=== PATIENT | female | born 1935 | race Caucasian/White ===

== ENCOUNTER 2017-02-03 20:48 | Inpatient (IN) ==
--- NOTE | 2017-02-03 21:54 | Diag Imaging Result Doc PS360 ---
EXAM: HEAD/C-SPINE W/O CONTRAST HISTORY: fall with L hip pain TECHNIQUE: COMPARISON: 12/23/2014 FINDINGS: Head: No parenchymal hemorrhage. No epidural or subdural hematoma. No subarachnoid hemorrhage. No skull fracture. No mass identified on this noncontrasted exam. No hydrocephalus. No sinus opacification. Cervical spine: There is mild curvature to the spine. No precervical soft tissue swelling. No subluxation. There are degenerative changes in the lower cervical spine. No fracture. IMPRESSION: No injury to the head or cervical spine. A preliminary report was given at 9:42 PM Electronically signed by Trent Barrera 02/03/2017 9:52 PM
--- NOTE | 2017-02-03 22:02 | Diag Imaging Result Doc PS360 ---
EXAM: PELVIS W/O CONTRAST HISTORY: fall with head injury; on blood thinner TECHNIQUE: COMPARISON: None. FINDINGS: There is scoliosis and degenerative changes in the lower lumbar spine. Neither hip is dislocated. No fracture to either hip. No widening of the pubic symphysis. No fracture to the pelvis. There is a soft tissue hematoma lateral to the left. IMPRESSION: No acute bony injury A preliminary report was given at 9:50 PM Electronically signed by Trent Barrera 02/03/2017 10:00 PM
[2017-02-03 23:21] LABS: MANUAL DIFF NEEDED? NO
[2017-02-03 23:22] LABS: BASO% 0.1 % (0.0-0.8); EOS# 0.08 X1000 (0.0-0.7); HEMATOCRIT 31.1 % (37.0-47.0); HEMOGLOBIN 10.3 g/dL (12.0-16.0); LYMPH# 1.42 X1000 (1.2-3.4); LYMPH% 17.5 % (20.5-51.1); MCHC 33.1 g/dL (33-37); MCV 90.7 FL (81-99); MONO# 0.69 X1000 (0.11-0.59); MONO% 8.5 % (1.7-9.3); MPV 9.9 FL (7.4-10.4); NEUT% 72.9 % (42.2-75.2); PLT 205 X1000 (130-400); RBC 3.43 XMIL (4.2-5.4)
[2017-02-03 23:39] LABS: ALBUMIN 3.8 g/dL (3.5-5.0); CALCIUM 9.3 mg/dL (8.8-10.2); TOTAL BILIRUBIN 0.43 mg/dL (0.20-1.00)
--- NOTE | 2017-02-03 23:45 | PROVIDER DOCUMENTATION ---
This chart was entered by Wilfredo Hernadez Scribe, acting as scribe for Maikol Angelo MD. HPI-Musculoskeletal Pain/Inj - GENERAL Chief Complaint: Fall Stated Complaint: LEFT HIP PAIN Time Seen by Provider: 02/03/17 21:37 Source: patient, family - HX OF PRESENT ILLNESS-MUSKULOSKELTAL Nature of Presenting Problem: Pt is a 81 yowf who presents to ER with CC of left hip injury. 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 Pt reports that she has nerve damage to RLE from prior back surgery, and is currently taking xarelto. Pt 's only complaint is a severe left hip hematoma. Quality of Pain: reports: pressure Severity in ED: severe Onset/Duration: unsure, just prior to arrival Timing: still present Any recent injury?: Yes Locality of Occurance: Home Similar Symptoms Previously?: No Recently seen or treated by another doctor?: No - FALL INJURY Location of Pain/Injury: reports: lower extremity (L hip) Pain Radiation: reports: no radiation Reason for Fall: reports: other ("Right leg just gave out on me") Loss of Consciousness: no loss of consciousness Injury Associated Symptoms: reports: joint pain (left hip), muscle aches, unable to bear weight, trouble walking. denies: arm pain, back/neck pain, chest pain, dizziness, headaches, puncture wound, shortness of breath, snap/ crack/pop sensation, vomiting, weakness Review of Systems - Adult - REVIEW OF SYSTEMS - ADULT Constitutional: denies: chills, fever, fatique, night sweats, weight gain, weight loss Eyes: reports: no symptoms reported Ears, Nose, Mouth & Throat: reports: no symptoms reported Cardiovascular: reports: no symptoms reported Respiratory: reports: no symptoms reported Gastrointestinal: reports: no symptoms reported Genitourinary: reports: no symptoms reported Musculoskeletal: reports: joint pain, joint swelling (left hip), muscle aches. denies: bone pain, back pain, frequent leg cramps, muscle weakness, neck pain Integumentary: reports: no symptoms reported Neurological: denies: dizziness/vertigo, headache/migraines, loss of balance, paresthesia, seizure, slurred speech Psychiatric: reports: no symptoms reported Endocrine: reports: no symptoms reported Hematologic/Lymphatic: reports: no symptoms reported Allergic/Immunologic: reports: no symptoms reported All Other Systems: Reviewed and Negative Past History - Adult - PAST MEDICAL HISTORY-ADULT Review of Records: reports: Nursing Assessment Review, Medications Reviewed Cardiovascular: reports: CAD, HTN, heart valve problem - PRIOR SURGERIES/PROCEDURES Surgical/Procedure History: reports: other (heart valve replacement) - IMMUNIZATION STATUS Childhood Immunizations: See Nurse Assessment Flu Vaccine: See Nurse Assessment - FAMILY HISTORY Family History: reviewed, not pertinent Physical Exam-Injury Related - Physical Exam-Injury Related Initial Vital Signs Reviewed: Yes General Appearance: appears well, alert, no apparent distress, thin (appears emaciated) Neck: non-tender, full range of motion, supple, normal inspection, other ( nondistended neck veins). negative: decresed ROM, limited range of motion, pain on movement, swelling Respiratory: chest non-tender, lungs clear, normal breath sounds, no pleuratic chest pain, no respiratory distress, no accessory muscle use. negative: respiratory distress, decreased breath sounds, accessory muscle use, wheezing Cardiovascular: normal peripheral pulses, regular rate, rhythm (paced rhythm). negative: bradycardia, tachycardia, irregularly irregular Abdominal Exam: normal bowel sounds, non tender, soft, no organomegaly, no pulsatile mass. negative: guarding, rebound, tenderness Extremity: normal inspection, no calf tenderness, normal capillary refill, pelvis stable, inflammation, pedal edema (2+ peripheral), swelling (severe swelling (hematome) to left hip), tenderness (mild L hip). negative: normal range of motion, non-tender, normal gait, no pedal edema, erythema Integumentary: ecchymosis (L hip), swelling, tenderness. 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 negative: motor weakness, sensory deficit Psych/Mental Status: normal mood/affect, normal thought content, normal thought process, oriented x 3 Progress - PLAN OF CARE/RESULTS Progress/Plan/Lab Results: Vital Signs - 8 hr 02/03/17 20:55 Temperature 98.1 F Pulse Rate 75 Respiratory Rate 18 Blood Pressure 184/54 O2 Sat by Pulse Oximetry 100 Laboratory Results - last 24 hr 02/03/17 02/03/17 23:09 23:09 WBC 8.11 RBC 3.43 L Hgb 10.3 L Hct 31.1 L MCV 90.7 MCH 30.0 MCHC 33.1 RDW Std Deviation 12.1 Plt Count 205 MPV 9.9 Immature Gran % (Auto) 0.0 Neut % (Auto) 72.9 Lymph % (Auto) 17.5 L [place] % (Auto) 8.5 Eos % (Auto) 1.0 Baso % (Auto) 0.1 Immature Gran # (Auto) 0.00 Neut # (Auto) 5.91 Lymph # (Auto) 1.42 [place] # (Auto) 0.69 H Eos # (Auto) 0.08 Baso # (Auto) 0.01 Sodium 131 L Potassium 4.0 Chloride 92 L Carbon Dioxide 28 Anion Gap 11 BUN 16 Creatinine 1.0 H Estimated GFR/1.73 m2 53 BUN/Creatinine Ratio 16 Glucose 116 H Calculated Osmolality 265 Calcium 9.3 Total Bilirubin 0.43 AST 18 ALT 11 Alkaline Phosphatase 71 Total Protein 6.0 L Albumin 3.8 Globulin 2.2 Albumin/Globulin Ratio 1.7 Orders Category Date Time Status HEAD/C-SPINE W/O CONTRAST [CT] Stat Exams 02/03/17 21:07 Completed PELVIS W/O CONTRAST [CT] Stat Exams 02/03/17 21:07 Completed CBC WITH ELECTRONIC DIFF [HEME] Stat Lab 02/03/17 23:09 Completed COMPREHENSIVE METABOLIC PANEL [CHEM] Stat Lab 02/03/17 23:09 Completed TYPE & SCREEN [BBK] Stat Lab 02/03/17 23:09 Received Result Diagrams: 02/03/17 23:09 02/03/17 23:09 - CT/MRI 1 CT Study: Head Impression: See EMR Report (NAP intracranially. DJD but no fx or other definite acute cspine injury - Dr. Velázquez (Radiologist)) CT Results: See report 2 CT Study: Pelvis Impression: See EMR Report (No pelvic of hip fx. Soft tissue hematoma lateral to the left hip - Dr. Velázquez (Radiologist)) CT Results: See report - CONSULTS/PCP/HOSPITALIST Notification #1 *Consult/PCP/Hospitalist*: Dr. Medina (Hospitalist) Time Discussed: 23:43 Consult Disposition: Admit Departure - Departure Date of Disposition Decision: 02/03/17 Time of Disposition Decision: 23:45 DIAGNOSIS: Hematoma and contusion Disposition: ADMITTED INPATIENT 09 Certified Medical Emergency: Emergent Condition: Good Referrals and Follow-Ups: Kenrick Borden MD [Primary Care Provider] - - Critical Care Note This patient required my direct & personal management of CC.: No This chart was documented by the indicated scribe, (Wilfredo Hernadez, Heladio) and accurately reflects the services I performed and decisions made by me, Maikol Angelo MD, as attested by the provider's signature.
[2017-02-04 01:22] LABS: INR 1.42; PROTIME 15.2 Seconds (9.2-11.7); PTT 38.5 Seconds (22.0-36.0)
[2017-02-04] MEDS ORDERED: TYLENOL PO PRN (02:41)
[2017-02-04] MEDS ORDERED: NEURONTIN PO ONE (02:41)
[2017-02-04] MEDS ORDERED: ZOFRAN IV PRN (02:41)
[2017-02-04] MEDS ORDERED: ULTRAM PO PRN (03:33)
--- NOTE | 2017-02-04 05:31 | EKG Report ---
Test Performed on : 02/04/2017 03:04:27 AM Test Reason : hx of A-fib Blood Pressure : / mmHG Vent. Rate : 062 BPM Atrial Rate : 055 BPM P-R Int : 000 ms QRS Dur : 174 ms QT Int : 476 ms P-R-T Axes : 000 -80 100 degrees QTc Int : 483 ms Ventricular-paced rhythm Abnormal ECG When compared with ECG of 16-NOV-2013 14:51, Electronic ventricular pacemaker has replaced Atrial fibrillation. Confirmed by Toño MCGOWAN, Ángel Henriquez ([id number]) on 02/04/2017 7:57:49 AM
--- NOTE | 2017-02-04 06:05 | HISTORY AND PHYSICAL ---
PRIMARY CARE PROVIDER: Dr. Kenrick Borden. TIME: 0130. CHIEF COMPLAINT: Fall. HISTORY OF PRESENT ILLNESS: Ms. Aragon is an 81-year-old, female who presented to the ER at approximately 8:50 p.m. on 02/03/2017 after having a fall at home. The patient states that she had a low back surgery several years ago, back in the 70s, from which she now has permanent nerve damage from. The patient states that she has chronic decrease in sensation as well as muscle control and difficulty with ambulation in bilateral lower extremities. She was walking with her cane at home and stated that her right foot was dragging when she was walking. It got caught and caused her to trip and fall. The patient fell, landing on her left hip, and did fall back and hit her head as well. She denies any loss of consciousness. Upon examination in the ER, she is awake and alert, and oriented x4. She is responding and answering questions appropriately. CT of the head and C-spine noncontrast showed no injury to the head or cervical spine. A pelvic CT was also performed which showed no acute bony injury, though there was a soft tissue hematoma noted to the lateral left hip. The patient does have quite a large hematoma noted to her left lateral hip. At this time, the patient reports that she is sore but is not complaining of any overt pain in this area or to her head. She denies any other injuries or symptoms at this time. The patient does have some chronic decreased sensation, though pulse, motor, and sensory are intact in both extremities. Neurovascular status is intact in the left lower extremity distal to the hematoma on her left upper hip. The patient does have a history of atrial fibrillation, currently on anticoagulation therapy with Xarelto. She also has a history of bradycardia with subsequent pacemaker placement and a history of coronary artery disease, status post CABG. She is also status post mitral valve replacement with a Maximiliano-Dao valve in 2011 for a treatment of mitral stenosis. Given the patient's cardiac history and concurrent anticoagulation therapy, we will admit her for further evaluation and observation of her left hip hematoma. She denies any headache, dizziness, lightheadedness, chest pain, shortness of breath, abdominal pain, nausea, vomiting, or diarrhea. The patient denies any constipation, hematochezia, or melena, though does report that when she is admitted to the hospital, she does frequently have problems with constipation. She denies any dysuria or urinary frequency. Other than abnormalities previously mentioned above in extremities, no other complaints. The patient is able to move all extremities well. She denies any fever, body aches, or chills. REVIEW OF SYSTEMS: A 12 point review of systems was conducted with the patient. All were negative except for pertinent positives mentioned above in the HPI. PAST MEDICAL HISTORY: 1. Chronic atrial fibrillation, on anticoagulation therapy with Xarelto. 2. Coronary artery disease, status post CABG. 3. Mitral valve disease, status post mitral valve replacement with a Maximiliano- Dao valve in 2011. 4. Hypertension. 5. Hypothyroidism. 6. History of peptic ulcer disease. 7. Gastroesophageal reflux disease. 8. History of vertigo. 9. Osteoarthritis. 10. Pacemaker placement for bradycardia. PAST SURGICAL HISTORY: 1. Mitral valve replacement along with coronary artery bypass graft with a single-vessel bypass in 2011. 2. Cholecystectomy. 3. Low back surgery. 4. Bilateral knee replacement. 5. Right shoulder replacement. 6. Cholecystectomy. 7. Hysterectomy. 8. Appendectomy. SOCIAL HISTORY: Patient is . She lives at home and her daughter does live with her. She denies any alcohol, tobacco, or illicit drug use. FAMILY HISTORY: Positive for her mother having a history of atrial fibrillation , arthritis, and a stroke. Her father had a history of congestive heart failure. She had 1 brother who from a stroke and another brother who at the age 60 due to metastatic bladder cancer. ALLERGIES: 1. Aminoglycosides. 2. polymyxin B 3. Streptomycin. HOME MEDICATIONS: 1. Tramadol 50 mg 1 p.o. p.r.n. as needed. 2. Xarelto 15 mg p.o. at bedtime. 3. Lovaza 1 g p.o. 4 times a day. 4. Synthroid 100 mcg p.o. daily. 5. Nexium 40 mg p.o. daily. 6. Lanoxin 125 mcg p.o. daily. 7. Carvedilol 12.5 mg p.o. b.i.d. 8. Magnesium oxide 1 tablet p.o. daily. 9. Losartan/hydrochlorothiazide 100/25 mg tablet 1 p.o. daily. 10. Gabapentin 100 mg 1 capsule p.o. at bedtime. 11. Amlodipine 5 mg once p.o. daily. DIAGNOSTIC DATA/LABORATORY RESULTS: White blood cell count 8.11, hemoglobin 10.3, hematocrit 31.1, platelet count 205,000. PT 15.2, INR 1.42, PTT 38.5. Sodium 131, potassium 4, chloride 92, carbon dioxide 28, BUN 16, creatinine 1, with a GFR of 53, glucose 116, calcium 9.3. Liver function tests are within normal limits. TSH is 2.36. Digoxin level is 0.6. EKG shows ventricular paced rhythm at a rate of 62 with a QTc of 483. Pelvis CT without contrast showed scoliosis and degenerative changes in the lower lumbar spine. There is not any bony injury or dislocation, though there is a soft tissue hematoma noted to the left lateral hip. This is per radiology. CT of head and C-spine, noncontrast, showed no injury to the head or cervical spine. This is per radiology. PHYSICAL EXAMINATION: VITAL SIGNS: Temperature 97.9 degrees, heart rate 71, respirations 20, blood pressure 171/50, oxygen saturation is 99% on room air. GENERAL: In general, Ms. Aragon is a very pleasant, 81-year-old, female who is resting comfortably on the ER stretcher. She was awake, alert, and able to answer all questions appropriately. HEENT: Head is atraumatic, normocephalic. Pupils are equal, round, reactive to light, were 3 mm bilaterally and brisk. Subconjunctivae were pink. Oral mucosa is moist. Oropharynx is clear. NECK: Supple. Trachea midline. No carotid bruits noted upon auscultation bilaterally. No JVD noted. CARDIOVASCULAR: Patient has normal S1, S2. No murmurs, gallops, or rubs appreciated, with a regular rate and a slightly irregular rhythm. PULMONARY: Patient has symmetrical chest expansion bilaterally. Lung sounds are clear to auscultation in bilateral full rodriguez. ABDOMEN: Soft, nontender, nondistended. Bowel sounds are present in all 4 quadrants, normoactive. EXTREMITIES: No cyanosis or clubbing noted. The patient has no edema noted in the lower extremities. She does have a large left lateral hip hematoma. There is a discoloration noted to the area as well. The patient is able to move all extremities. She has good range of motion in hips and knee joints. Pulse, motor, and sensory are intact in all extremities as well. Pedal pulses are 3+ bilaterally. Capillary refill is less than 3. The patient also has a small, approximately half-dollar size bruise noted to the anterior portion of her left wrist. INTEGUMENTARY: The patient's skin is pink, warm, dry, and intact. No lesions or sores noted except for above discoloration and bruising mentioned in the extremity exam. NEUROLOGICAL: Patient is alert and oriented to person, place, time, and situation. Cranial nerves 2-12 are grossly intact. ASSESSMENT AND PLAN: 1. Left lateral hip soft tissue hematoma. For this, we will place the patient on every 4 hour neurovascular checks in her left lower extremity. We have also placed an order for every 4 hour circumference measurements of her left upper thigh where the hematoma is located. We will repeat a CBC in the morning. We have, at this time, given the patient' s large hematoma, held her Xarelto. We will continue to monitor this very closely. 2. Chronic atrial fibrillation. As previously mentioned, we have held the patient's Xarelto at this time given her hematoma. We will continue her medications of digoxin. We will continue to follow. Her EKG showed a ventricular paced rhythm at a rate of 62. She will be placed on telemetry upon admission. 3. Coronary artery disease, status post coronary artery bypass graft. 4. Mitral valve disease, status post mitral valve replacement. 5. Hypertension. We will continue her antihypertensive medications. 6. Hypothyroidism. We will continue her levothyroxine and have placed an order for a TSH. 7. Gastroesophageal reflux disease. We will continue her Nexium. The patient will be placed on the medical floor with telemetry. She will have vital signs every 4 hours. Deep venous thrombosis prophylaxis will be provided with VICKI busby at this time. We will place her on fall precautions as well as every 4 hour neurological checks and neurovascular checks of her left lower extremity. We will do strict intake and output. She will be on a heart healthy diet. We will repeat a CBC and BMP in the morning. The patient does take digoxin. We have placed orders for a digoxin level as well. We will await those results. Further orders and recommendations pending hospital course, diagnostic studies, and physician evaluation. Dictated by RUDOLPH Frazier for Davie Medina MD cc: Davie Medina MD [facility]
[2017-02-04 07:29] LABS: MANUAL DIFF NEEDED? NO
[2017-02-04] MEDS: PRILOSEC PO SCH (07:35)
[2017-02-04 07:50] LABS: BASO% 0.6 % (0.0-0.8); EOS# 0.09 X1000 (0.0-0.7); EOS% 1.7 % (0.0-10.0); HEMATOCRIT 28.7 % (37.0-47.0); HEMOGLOBIN 9.6 g/dL (12.0-16.0); LYMPH# 1.58 X1000 (1.2-3.4); MCH 30.3 PG (27-31); MCHC 33.4 g/dL (33-37); MCV 90.5 FL (81-99); MONO# 0.56 X1000 (0.11-0.59); MONO% 10.3 % (1.7-9.3); MPV 9.7 FL (7.4-10.4); NEUT% 58.4 % (42.2-75.2); PLT 179 X1000 (130-400); RBC 3.17 XMIL (4.2-5.4)
[2017-02-04 08:04] LABS: AGAP 9; BUN 13 mg/dL (8-22); CALCIUM 9.1 mg/dL (8.8-10.2); CHLORIDE 94 mmol/L (98-107); COSMO 264; POTASSIUM 3.9 mmol/L (3.5-5.1); SODIUM 132 mmol/L (136-145); TCO2 29 mmol/L (25-35)
[2017-02-04] MEDS: SYNTHROID PO SCH (09:14)
[2017-02-04] MEDS: COREG PO SCH ×2 (09:15→22:44)
[2017-02-04] MEDS: MAG-OX PO SCH (09:15)
[2017-02-04] MEDS: HYZAAR 50/12.5 MG PO SCH (09:15)
[2017-02-04] MEDS: LOVAZA PO SCH ×4 (09:15→22:44)
[2017-02-04] MEDS: LANOXIN PO SCH (09:16)
[2017-02-04] MEDS: NORVASC PO SCH (09:16)
[2017-02-04] MEDS: NEURONTIN PO SCH (22:44)
[2017-02-05] MEDS: SYNTHROID PO SCH (06:10)
[2017-02-05] MEDS: PRILOSEC PO SCH (06:10)
--- NOTE | 2017-02-05 08:55 | PROGRESS NOTE ---
DATE: 02/05/2017 PRIMARY CARE PHYSICIAN: Dr. Kenrick Borden. SUBJECTIVE: Overnight the patient was moved to floor. Ice was used with good effect on the left hip hematoma. No other issues or concerns noted. The patient was able to move all extremities well per nursing. It was a great sign concerning this case. OBJECTIVE: Vital signs: Temperature 97.6 degrees, pulse 80, respirations unmeasured. Blood pressure 123/44, O2 saturation 94% on 2 L nasal cannula. I's and O's show an output fluid balance of approximately 1 L. General: Physical exam shows a female, no acute distress. Awake and alert. HEENT: Normocephalic, atraumatic. Pupils equal, round, reactive to light. neck: Trachea is midline. No bruits noted. Heart: Normal S1, S2. Lung: Lung sounds are clear to auscultation anteriorly. Abdomen: Soft, nontender, nondistended. Extremities: Show a large lateral hip hematoma. Erythema and ecchymosis noted, but no overt tenderness to palpation. Above expectation. Good range of motion. Pulses are 3+. The cap refill is less than 3 seconds. Neurologic: The patient is alert and oriented to person, place, time and situation. LABS: Labs show hemoglobin and hematocrit of 9.6 and 28.7, neutrophils within normal limits. Sodium is still low at 132. Anion gap of 9, creatinine 0.8, glucose of 82, digoxin level at 0.6. X-RAYS: Patient had a pelvis CT performed that shows no acute bony injury, and a head CT cervical spine performed that is well within normal limits. ASSESSMENT AND PLAN: We have a 81-year-old, female with: 1. Chronic atrial fibrillation. Coumadin being held. The patient will be on telemetry. 2. Left lateral hip hematoma. We will continue the circumference measurements. Complete blood count is within normal limits. Continue to monitor. I will hold the Xarelto. 3. Coronary artery disease status post coronary artery bypass graft. 4. Hypertension within normal limits. 5. Hypothyroidism. 6. Gastroesophageal reflux disease. The patient is doing well today. VICKI hoses will be provided. We will re-evaluate patient's medication list regarding what looks like chronic hyponatremia and follow in a.m. The patient is discharged likely in 1-2 days with good home care to be provided. We will discuss with family any of the outpatient needs as necessary. cc: Kenrick Borden MD
[2017-02-05] MEDS: LANOXIN PO SCH (10:02)
[2017-02-05] MEDS: NORVASC PO SCH (10:03)
[2017-02-05] MEDS: COREG PO SCH ×2 (10:03→20:08)
[2017-02-05] MEDS: MAG-OX PO SCH (10:04)
[2017-02-05] MEDS: LOVAZA PO SCH ×4 (10:04→20:08)
[2017-02-05] MEDS: HYZAAR 50/12.5 MG PO SCH (10:04)
--- NOTE | 2017-02-05 18:42 | CONSULTATION ---
DATE OF CONSULTATION: 02/05/2017 CHIEF COMPLAINT: Left hip hematoma. HISTORY: This is an 81-year-old lady who was on Xarelto for chronic atrial fibrillation. On Saturday 2 days ago she fell striking her left hip. She then developed this hematoma. The pain has lessened today. There does not seen to be any progression per her evaluation. PAST MEDICAL HISTORY: Pertinent for the chronic atrial fibrillation, coronary artery disease having had coronary bypass, history of mitral valve replacement, hypertension, hypothyroidism, gastroesophageal reflux, history of peptic ulcer disease, history of vertigo, osteoarthritis, history of a pacemaker placement. OPERATIONS: Mentioned above. In addition to what is mentioned above. She has had bilateral knee replacement and shoulder replacement, cholecystectomy, low-back surgery, hysterectomy and appendectomy. MEDICATIONS: Listed and include the Xarelto. ALLERGIES: She has an allergy to that is polymyxin B and streptomycin. SOCIAL HISTORY: She is . Denies alcohol or tobacco use. FAMILY HISTORY: Pertinent for atrial fibrillation. REVIEW OF SYSTEMS: As noted above. PHYSICAL EXAMINATION: Vital Signs: She is afebrile. Heart rate 67, irregular, respiratory 19, blood pressure 128/44. General: She is awake, alert and oriented. No cervical adenopathy. Lungs: Bilateral breath sounds. Heart: Irregular rate and rhythm. Abdomen: Soft. She has a large hematoma in the left hip laterally. There is no active evidence of bleeding. Extremities: Otherwise no peripheral edema. Neurologic: She is awake and alert. LABORATORY: Hemoglobin 9.6, hematocrit 28.7 yesterday. ASSESSMENT: Left hip hematoma. I would simply hold her Xarelto for now. I do not recommend any intervention regarding her hematomas. It should resolve with time. Any incision into the hematoma would increase her risk for infection and set her up for potential wound infection. Thanks for the opportunity to see her. cc: MD Kenrick Rousseau MD
[2017-02-05] MEDS: NEURONTIN PO SCH (20:08)
[2017-02-06 06:39] LABS: MANUAL DIFF NEEDED? NO
[2017-02-06] MEDS: SYNTHROID PO SCH (06:39)
[2017-02-06] MEDS: PRILOSEC PO SCH (06:39)
[2017-02-06 06:51] LABS: BASO% 0.4 % (0.0-0.8); EOS# 0.13 X1000 (0.0-0.7); EOS% 2.5 % (0.0-10.0); HEMATOCRIT 25.8 % (37.0-47.0); HEMOGLOBIN 8.5 g/dL (12.0-16.0); LYMPH# 1.49 X1000 (1.2-3.4); LYMPH% 28.2 % (20.5-51.1); MCH 29.9 PG (27-31); MCHC 32.9 g/dL (33-37); MCV 90.8 FL (81-99); MONO# 0.57 X1000 (0.11-0.59); MONO% 10.8 % (1.7-9.3); MPV 10.2 FL (7.4-10.4); NEUT% 58.1 % (42.2-75.2); PLT 178 X1000 (130-400); RBC 2.84 XMIL (4.2-5.4)
[2017-02-06 07:01] LABS: ALBUMIN 3.4 g/dL (3.5-5.0); CALCIUM 9.3 mg/dL (8.8-10.2); POTASSIUM 4.3 mmol/L (3.5-5.1); TOTAL BILIRUBIN 0.46 mg/dL (0.20-1.00); TOTAL PROTEIN 5.5 g/dL (6.3-8.3)
[2017-02-06] MEDS ORDERED: BENADRYL PO ONE (07:43)
[2017-02-06] MEDS ORDERED: TYLENOL PO ONE (07:43)
--- NOTE | 2017-02-06 08:02 | PROGRESS NOTE ---
DATE: 02/06/2017 PRIMARY CARE PHYSICIAN: Dr. Kenrick Borden. SUBJECTIVE: Overnight, the patient responded well to current treatment. Assisted to chair. Incentive spirometer being used with excellent effect. Notes decreased pain associated with hematoma. No chest pain. No nausea. No vomiting. OBJECTIVE: Vital Signs: Temperature 97.5 degrees, pulse 63, respirations 21, blood pressure 146/48, O2 saturation 99% on room air. Is and Os: Practically matched. Patient is in-taking appropriately the amount of food provided. Physical Examination: General: Shows an elderly female, in no acute distress. Lying supine in bed. Extremities: Left hip noted to be warm to the touch. Ecchymosis approximately 6 cm in diameter over the left greater trochanter. Decrease in swelling. No issues associated with range of motion. CV: Irregularly irregular but rate controlled. Lungs: Clear to auscultation anteriorly. Vascular: Pulses in the lower extremities are 2+ and within normal limits. CONSULTATION: Per Dr. Gan, was evaluated for the left hematoma. No intervention was recommended. Incision is likely to increase the risk of infection. ASSESSMENT AND PLAN: An 81-year-old, white female with: 1. Chronic atrial fibrillation. Xarelto being held. Currently on telemetry. 2. Left lateral hip hematoma. Continue the circumference measurements. A CBC is noting anemia. Xarelto held. We will replete with 2 units of packed red blood cells today. 3. Hypertension. 4. Anemia of blood loss. 5. Hypothyroidism. 6. Gastroesophageal reflux disease. The patient will be provided 2 units of packed red blood cells with CBC checked in the morning to correct the chronic hyponatremia and to avoid any worsening upon discharge. Patient is planned to be discharged in the morning to home with minimal need for home health. cc: Kenrick Borden MD
[2017-02-06] MEDS: COREG PO SCH (09:19)
[2017-02-06] MEDS: HYZAAR 50/12.5 MG PO SCH (09:19)
[2017-02-06] MEDS: MAG-OX PO SCH (09:21)
[2017-02-06] MEDS: NORVASC PO SCH (09:21)
[2017-02-06] MEDS: LANOXIN PO SCH (09:21)
[2017-02-06] MEDS: LOVAZA PO SCH ×3 (09:22→16:34)
[2017-02-06] MEDS ORDERED: NS 250 ML ONE (10:07)
[2017-02-06] MEDS: LASIX IV SCH (15:39)
[2017-02-06] MEDS ORDERED: LASIX ONE (23:57)
[2017-02-07] MEDS: NEURONTIN PO SCH (00:01)
[2017-02-07] MEDS: COREG PO SCH ×2 (00:01→08:14)
[2017-02-07] MEDS: LOVAZA PO SCH ×2 (00:01→08:15)
[2017-02-07] MEDS: LASIX IV SCH (00:02)
[2017-02-07 06:36] LABS: MANUAL DIFF NEEDED? NO
[2017-02-07] MEDS: PRILOSEC PO SCH (06:40)
[2017-02-07] MEDS: SYNTHROID PO SCH (06:40)
[2017-02-07 06:59] LABS: BASO% 0.4 % (0.0-0.8); EOS% 1.9 % (0.0-10.0); HEMATOCRIT 31.1 % (37.0-47.0); HEMOGLOBIN 10.6 g/dL (12.0-16.0); LYMPH# 1.29 X1000 (1.2-3.4); MCH 29.8 PG (27-31); MCHC 34.1 g/dL (33-37); MCV 87.4 FL (81-99); MONO# 0.51 X1000 (0.11-0.59); MONO% 9.5 % (1.7-9.3); NEUT% 64.2 % (42.2-75.2); PLT 175 X1000 (130-400); RBC 3.56 XMIL (4.2-5.4)
[2017-02-07 07:13] LABS: ALBUMIN 3.4 g/dL (3.5-5.0); CALCIUM 9.2 mg/dL (8.8-10.2); MAGNESIUM 1.8 mg/dL (1.5-2.7); POTASSIUM 3.7 mmol/L (3.5-5.1); TOTAL BILIRUBIN 1.28 mg/dL (0.20-1.00); TOTAL PROTEIN 5.7 g/dL (6.3-8.3)
[2017-02-07 07:21] VITALS: BP 124/82
[2017-02-07] MEDS: HYZAAR 50/12.5 MG PO SCH (08:13)
[2017-02-07] MEDS: LANOXIN PO SCH (08:14)
[2017-02-07] MEDS: NORVASC PO SCH (08:14)
[2017-02-07] MEDS: MAG-OX PO SCH (08:14)
--- NOTE | 2017-02-07 12:58 | DISCHARGE SUMMARY ---
ADMISSION DATE: 02/05/2017 DISCHARGE DATE: 02/07/2017 PRIMARY CARE PHYSICIAN: Dr. Kenrick Borden CONSULTS: Dr. Maikol Gan CHIEF COMPLAINT: Status post fall. HISTORY OF PRESENT ILLNESS: In brief, an 81-year-old, female, with atrial fibrillation on Xarelto states having a fall at home secondary to permanent nerve damage. Denies any loss of consciousness. Noted left hip swelling, soft tissue hematoma. CT performed showing that there was no acute bony injury. CT of the head and C-spine showed no injury at that time. HOSPITAL COURSE: Patient was admitted to the general medical floor treated with IV fluid resuscitation. The Xarelto was held. The patient had ice to the hematoma site. Surgery evaluated and said no need for any surgical drainage or manipulation. Also discuss that the condition will likely last approximately 6 months. Recommendations were made. The patient was also anemic and received 2 units of packed red blood cells. PROBLEM LIST ON DISCHARGE: 1. Chronic atrial fibrillation. Xarelto held. 2. History of CAD, status post CABG. 3. History of mitral valve disease status post mitral valve replacement with Maximiliano-Dao valve 2011. 4. History of peptic ulceration. 5. 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 6. Left hip hematoma resolving. LABORATORY DATA: Labs show WBC within normal limits. Hemoglobin and hematocrit dropped to 8.5 and 25.8, improved to 10.6 and 31.1, status post 2 units of packed red blood cells. INR on admission 1.42. Sodium shows chronic hyponatremia with sodium ranging from approximately 128-132. BUN of 28 with creatinine of 0.9, total bilirubin 1.28 with a total protein 5.7, microbiology not performed. Reports as notated in the brief HPI. MEDICATIONS: Please refer to medication reconciliation order form for most up-to-date list of medications. DISCHARGE INSTRUCTIONS: The patient has been advised to continue the current medications along with the use of topical [place] cream and arnica gel for the swelling with off and in ice packs. Xarelto will be held until further evaluation of the hematoma and the blood count. Patient can continue the Ultram for pain as necessary. FOLLOWUP: Patient will follow up in my office in approximately 1 week. DISPOSITION: Discharged home in stable condition. cc: Kenrick Borden MD
== END 2017-02-07 09:49 | disposition home or self-care (01) ==
LOC: EDIPHOLD 20:48 → ED 20:48 → SUATTDRO 02-04 02:36 → 3N 02-04 12:13
PROVIDERS: ADMIT Family Medicine; ATTEND Family Medicine

== ENCOUNTER 2018-08-27 16:38 | Inpatient (IN) ==
--- NOTE | 2018-08-27 17:34 | Diag Imaging Result Doc PS360 ---
EXAM: CHEST-PORTABLE 08/27/2018 HISTORY: edema TECHNIQUE: AP portable upright at 1726 COMMENT: There is increasing right pleural effusion compared to 06/13/2015. There is cardiomediastinal silhouette enlargement with apparent mitral valve prosthesis and sternotomy wires. There is a right total shoulder arthroplasty. The left lung appears clear and unchanged. There are calcified nodes in the left hilum. IMPRESSION: Right pleural effusion. Electronically signed by Jeffy Warren 08/27/2018 5:31 PM
--- NOTE | 2018-08-27 17:39 | PROVIDER DOCUMENTATION ---
HPI-General Adult - General Chief Complaint: Edema Stated Complaint: FLUID BUILD UP Time Seen by Provider: 08/27/18 17:14 Source: patient, family, old records Allergies/Adverse Reactions: Patient Allergies Allergy/AdvReac Type Severity Reaction Status Date / Time Aminoglycosides Allergy Severe Unknown Verified 02/03/17 21:16 polymyxin B Allergy Severe RASH Verified 02/03/17 21:16 streptomycin [Streptomycin] Allergy Severe Unknown Verified 02/03/17 21:16 Home Medications: Home Medication List Medication Instructions Recorded Confirmed Last Taken Type Carvedilol 12.5 mg PO BID 11/16/13 08/27/18 06/13/15 08:00 History Digoxin [Lanoxin] 125 microgm PO DAILY 11/16/13 08/27/18 06/13/15 08:00 History Levothyroxine [Synthroid] 100 microgm PO DAILY 11/16/13 08/27/18 06/13/15 08:00 History Acetaminophen [Tylenol] 650 mg PO Q6H PRN PRN #0 tablet 02/07/17 08/27/18 Unknown Rx Magnesium Oxide [Mag-Ox] 400 mg PO DAILY tablet 02/07/17 08/27/18 Unknown Rx Tramadol [Ultram] 50 mg PO Q8H PRN #60 tablet 02/07/17 08/27/18 Unknown Rx Clopidogrel [Plavix] 75 mg PO DAILY 08/27/18 08/27/18 Unknown History Furosemide [Lasix] 40 mg PO DAILY 08/27/18 08/27/18 Unknown History Hydroxyzine [Atarax] 25 mg PO TID 08/27/18 08/27/18 Unknown History Rivaroxaban [Xarelto] 15 mg PO DAILY 08/27/18 08/27/18 Unknown History Spironolactone 25 mg PO DAILY PRN 08/27/18 08/27/18 Unknown History - History of Present Illness -Gen Adult Nature of Presenting Problems: Sent here from Dr. Richards office for worsening LE edema, dyspnea. Also complains of right arm swelling. Location of Pain/Injury: reports: none Pain Radiation: reports: no radiation Quality of Pain: reports: none Onset/Duration: reports: other (1 month) Timing: reports: getting worse Context/Activities at Onset: reports: none Modifying Factors: worse with: nothing Associated Symptoms: reports: fatigue, shortness of breath. denies: anxiety, chest pain, cough, diarrhea, dizziness, fever/chills, joint pain, sinus congestion/drainage, syncope, vomiting, trouble walking Similar Symptoms Previously?: Yes Recently seen or treated by another doctor?: Yes Review of Systems - Adult - REVIEW OF SYSTEMS - ADULT Constitutional: reports: fatique Eyes: reports: no symptoms reported Ears, Nose, Mouth & Throat: reports: no symptoms reported Cardiovascular: reports: see HPI, edema, orthopnea. denies: chest pain, syncope Respiratory: reports: see HPI, shortness of breath. denies: wheezing Gastrointestinal: reports: no symptoms reported Genitourinary: reports: no symptoms reported Musculoskeletal: reports: joint pain, joint swelling Integumentary: reports: no symptoms reported Neurological: reports: no symptoms reported. denies: numbness, paresthesia Psychiatric: reports: no symptoms reported Endocrine: reports: no symptoms reported Hematologic/Lymphatic: reports: no symptoms reported Allergic/Immunologic: reports: no symptoms reported All Other Systems: Reviewed and Negative Past History - Adult - PAST MEDICAL HISTORY-ADULT Review of Records: reports: Old Records Reviewed, Nursing Assessment Review, Medications Reviewed, Social history reviewed & non-contributory. Major Childhood Illnesses: reports: denies history Cardiovascular: reports: CAD, HTN, heart valve problem Respiratory: reports: denies history Gastrointestinal: reports: denies history Obstetrical/Gynecological: reports: denies history Genitourinary: reports: denies history Musculoskeletal: reports: denies history Neurological: reports: denies history Endocrine/Immune: reports: denies history Other Conditions: reports: denies history - PRIOR SURGERIES/PROCEDURES Surgical/Procedure History: reports: other (heart valve replacement) - IMMUNIZATION STATUS Childhood Immunizations: See Nurse Assessment Flu Vaccine: See Nurse Assessment - FAMILY HISTORY Family History: reviewed, not pertinent - SOCIAL HISTORY Smoking: denies Substance Use: none/never Alcohol Use Frequency: never Living Situation: family Physical Exam-General - PHYSICAL EXAM-ADULT Initial Vital Signs Reviewed: Yes - CONSTITUTIONAL General Appearance: appears well, alert, no apparent distress - EYES Eyes: pink conjunctivae - HEAD, EARS, NOSE, MOUTH & THROAT HENMT: moist mucous membranes - NECK Neck: supple - RESPIRATORY Respiratory: no respiratory distress, no accessory muscle use, crackles - CARDIOVASCULAR Cardiovascular: normal peripheral pulses, regular rate, rhythm - GASTROINTESTINAL (ABDOMEN) Abdominal Exam: non tender, soft - LYMPHATIC Lymphatic: no adenopathy - MUSCULOSKELETAL Back Exam: normal inspection Extremity: swelling (BLE; right elbow to proximal are there is severe edema, ecchymosis. Good radial pulses.) - SKIN Integumentary: normal color, normal turgor, warm/dry - NEUROLOGIC Neurologic: grossly normal, no motor/sensory deficits - PSYCHIATRIC Psych/Mental Status: normal thought content Progress - PLAN OF CARE/RESULTS Progress/Plan/Lab Results: Vital Signs - 8 hr 08/27/18 16:58 Temperature 98.2 F Pulse Rate 72 Respiratory Rate 19 Blood Pressure 153/74 O2 Sat by Pulse Oximetry 99 Orders Category Date Time Status Saline Loc NOW Care 08/27/18 17:16 Active cxr [CHEST-PORTABLE] [RAD] Stat Exams 08/27/18 17:17 Completed CBC WITH ELECTRONIC DIFF [HEME] Stat Lab 08/27/18 17:16 Uncollected CK PROFILE [SP CHEM] Stat Lab 08/27/18 17:16 Uncollected COMPREHENSIVE METABOLIC PANEL [CHEM] Stat Lab 08/27/18 17:16 Uncollected PRO B-NATRIURETIC PEPTIDE Stat Lab 08/27/18 17:16 Uncollected PROTIME WITH INR [COAG] Stat Lab 08/27/18 17:16 Uncollected PTT [COAG] Stat Lab 08/27/18 17:16 Uncollected TROPONIN T Stat Lab 08/27/18 17:16 Uncollected UA NIMS W/REFLEX CULT [URINALYSIS] Stat Lab 08/27/18 17:16 Uncollected CP/SOB/Palp >45 yrs of Age Stat Oth 08/27/18 17:16 Ordered EKG [EKG] Stat Ther 08/27/18 17:04 Ordered Venous U/S Right Arm Stat Ther 08/27/18 17:[address] Chatterjee. Result Diagrams: 08/27/18 18:00 08/27/18 18:00 - XRAY 1 Impression: See EMR Report (EXAM: CHEST-PORTABLE 08/27/2018 HISTORY: edema TECHNIQUE: AP portable upright at 1726 COMMENT: There is increasing right pleural effusion compared to 06/13/2015. There is cardiomediastinal silhouette enlargement with apparent mitral valve prosthesis and sternotomy wires. There is a right total shoulder arthroplasty. The left lung appears clear and unchanged. There are calcified nodes in the left hilum. IMPRESSION: Right pleural effusion.) 2 Impression: See EMR Report ( EXAM: ELBOW COMPLETE RIGHT 08/27/2018 HISTORY: ? injury TECHNIQUE: Right elbow three views COMMENT: There is severe erosion of the radial head, olecranon fossa and distal humerus. There are numerous bony fragments around the joint particularly posteriorly and there is soft tissue swelling, effusion, and probable olecranon bursal effusion. The radial head is dislocated with respect to the capitellum. 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 There appears to be arterial extravasation) - CONSULTS/PCP/HOSPITALIST Notification #1 *Consult/PCP/Hospitalist*: Dr. Lunsford Time Discussed: 19:17 Consult Disposition: Admit Procedures - SPLINTING Right Upper Extremity Other Location: right elbow Pre-Procedure Neurovascular Exam: Intact Pre-Fabricated Splint: Other (akil wrap) Applied By: Mid-level Post Procedure Neurovascular Exam: Intact Departure - Departure Date of Disposition Decision: 08/27/18 Time of Disposition Decision: 19:17 DIAGNOSIS: Extravasation injury CHF exacerbation Qualifiers: Heart failure type: unspecified Qualified Code(s): I50.9 - Heart failure, unspecified Dislocation of elbow Qualifiers: Encounter type: initial encounter Laterality: right Qualified Code(s): S53.104A - Unspecified dislocation of right ulnohumeral joint, initial encounter Anemia Qualifiers: Anemia type: unspecified type Qualified Code(s): D64.9 - Anemia, unspecified Disposition: ADMITTED INPATIENT 09 Certified Medical Emergency: Emergent Condition: Stable - Critical Care Note This patient required my direct & personal management of CC.: No Attestation - Physician/ JYOTSNA Attestation Patient care was provided by Advanced Practice Provider:: Yes Advanced Practice Provider:: Torin Jason Advanced Practice Provider documentation review:: The Mid-level provider documentation, treatment plan and medical decision making was reviewed by the physician who agrees with all treatment and medical decision making by the MLP. The physician spent face to face time with patient:: No Advanced Practice Provider documentation review:: Supervising physician onsite and consulted in the evaluation and care of this patient. The physician did not have a face to face encounter with the patient.
[2018-08-27 18:11] LABS: BASO# 0.05 X1000 (0.0-0.2); BASO% 0.8 % (0.0-0.8); EOS# 0.19 X1000 (0.0-0.7); EOS% 3.1 % (0.0-10.0); HEMATOCRIT 32.5 % (37.0-47.0); HEMOGLOBIN 9.9 g/dL (12.0-16.0); LYMPH# 1.07 X1000 (1.2-3.4); LYMPH% 17.6 % (20.5-51.1); MCHC 30.5 g/dL (33-37); MCV 95.3 FL (81-99); MONO# 0.58 X1000 (0.11-0.59); MONO% 9.5 % (1.7-9.3); MPV 9.8 FL (7.4-10.4); PLT 238 X1000 (130-400); RBC 3.41 XMIL (4.2-5.4); RDW 13.7 % (11.5-14.5); WBC 6.09 X1000 (4.8-10.8)
[2018-08-27 18:18] LABS: INR 1.45; PROTIME 18.8 Seconds (11.0-16.0)
[2018-08-27 18:19] LABS: PTT 37.7 Seconds (22.3-41.8)
--- NOTE | 2018-08-27 18:21 | Diag Imaging Result Doc PS360 ---
EXAM: ELBOW COMPLETE RIGHT 08/27/2018 HISTORY: ?injury TECHNIQUE: Right elbow three views COMMENT: There is severe erosion of the radial head, olecranon fossa and distal humerus. There are numerous bony fragments around the joint particularly posteriorly and there is soft tissue swelling, effusion, and probable olecranon bursal effusion. The radial head is dislocated with respect to the capitellum. 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 Electronically signed by Jeffy Warren 08/27/2018 6:18 PM
[2018-08-27 18:31] LABS: ALB/GLOB RATIO 1.3; ALBUMIN 3.7 g/dL (3.5-5.0); CALCIUM 9.2 mg/dL (8.8-10.2); CREATININE 1.2 mg/dL (0.5-0.9); POTASSIUM 4.7 mmol/L (3.5-5.1); TOTAL BILIRUBIN 0.76 mg/dL (0.20-1.00); TOTAL PROTEIN 6.6 g/dL (6.3-8.3)
[2018-08-27] MEDS ORDERED: LASIX IV ONE (18:50)
[2018-08-27 18:57] LABS: URINE SOURCE CLEAN CATCH
[2018-08-27 19:04] LABS: BILIRUBIN URINE NEGATIVE (NEGATIVE); BLOOD URINE NEGATIVE (NEGATIVE); COLOR YELLOW; GLUCOSE URINE NEGATIVE (NEGATIVE); KETONE URINE NEGATIVE (NEGATIVE); LEUKOCYTES URINE NEGATIVE (NEGATIVE); NITRITE URINE NEGATIVE (NEGATIVE); PH URINE 6.5; PROTEIN URINE TRACE mg/dL (NEGATIVE); SP GRAVITY URINE 1.009; TURBIDITY URINE CLEAR (CLEAR); UROBILINOGEN URINE 2 mg/dL (NORMAL)
[2018-08-27 19:05] LABS: UR EPITHELIAL CELLS <10 /HPF (<10); URINE BACTERIA NEGATIVE /HPF; URINE RBC <10 /HPF (<10); URINE WBC <10 /HPF (<10)
[2018-08-27] MEDS ORDERED: ZOFRAN IV PRN (21:52)
[2018-08-27] MEDS ORDERED: FLU VACCINE IM ONE (22:17)
[2018-08-28] MEDS: TYLENOL PO PRN (00:27)
[2018-08-28] MEDS ORDERED: ALDACTONE PO SCH (01:00)
--- NOTE | 2018-08-28 04:53 | HISTORY AND PHYSICAL ---
CHIEF COMPLAINT: Edema in the legs. Sent by Dr. Kenrick Borden for evaluation. HISTORY OF PRESENT ILLNESS: Ms. Aragon is a pleasant 83-year-old female who comes into the emergency room related to lower extremity edema, dyspnea which has been gradually getting worse for the last month. Also has complaint of right arm swelling. States that she has not really felt well since Thanksgiving, but kept putting off coming to the emergency room. 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 On exam, the patient was noted to have 3-plus edema in bilateral lower extremities from mid thigh down as well as edematous right arm with ecchymosis. Chest x-ray showed a right pleural effusion. Her elbow appears to be a chronic dislocation of the radius with severe erosive arthritis. An ultrasound was performed to rule out DVT which it did. Laboratory data also showed an elevation of the patient's proBNP at 3946. She will be admitted to the medical floor for further evaluation and treatment. PAST MEDICAL HISTORY: See HPI. PREVIOUS SURGICAL HISTORY: 1. Mitral valve disease with replacement with a Maximiliano-Dao valve in 2011. 2. Coronary artery bypass grafting with single-vessel bypass also 2012. 3. Cholecystectomy. 4. Low back surgery. 5. Bilateral knee replacement. 6. Right shoulder replacement. 7. Cholecystectomy. 8. Hysterectomy. 9. Appendectomy. SOCIAL HISTORY: She is a . Lives at home alone. Daughter lives close. No alcohol, tobacco or illicit drugs. FAMILY HISTORY: Mother had atrial fibrillation and a CVA. Father had congestive heart failure. One brother from a stroke, another at age 60 due to metastatic bladder cancer. ALLERGIES: Polymyxin B, streptomycin and aminoglycosides. HOME MEDICATIONS: 1. Carvedilol 12.5 mg p.o. b.i.d. 2. Plavix 75 mg p.o. daily. 3. Digoxin 125 mcg p.o. daily. 4. Lasix 40 mg p.o. daily. 5. Atarax 25 mg p.o. daily. 6. Xarelto 15 mg p.o. daily. 7. Magnesium oxide 400 mg p.o. daily. 8. Spironolactone 25 mg p.o. daily. 9. Ultram 50 mg p.o. q.8 p.r.n. 10.Tylenol 650 q.6 p.r.n. 11.Levothyroxine 100 mcg p.o. daily. REVIEW OF SYSTEMS: Fourteen point review of systems conducted with the patient. Pertinent positives listed above in the HPI. All other systems reviewed and found to be negative. PHYSICAL EXAMINATION: VITAL SIGNS: Temperature 97.5, pulse 62, respirations 18, blood pressure 162/54, oxygen saturation 98% on room air. GENERAL: Pleasant 83-year-old female alert and oriented times 3, answers all questions appropriately. She is in no acute distress. HEENT: Head is atraumatic, normocephalic. Pupils equal, round, reactive to light. Extraocular eye movement intact. Sclerae are anicteric. Conjunctiva is pink. Oral mucosa is moist. NECK: Supple. No JVD. No carotid bruit. Trachea is midline. CARDIOVASCULAR: S1, S2 appreciated. No murmurs, gallops, rubs. Regular rate. Irregularly irregular rhythm. LUNGS: Decreased right greater than left. Mild crepitations noted in that base as well. Symmetrical rise and fall with respirations. ABDOMEN: Soft, nondistended, nontender. Bowel sounds present all 4 quadrants, normoactive. No pulsatile mass. No organomegaly. EXTREMITIES: No clubbing or cyanosis. Three-plus pitting edema bilateral lower extremities mid thigh to foot. Left upper extremity 3-plus edema nonpitting. Ecchymosis noted. It has been wrapped in a wrap at the elbow. Lower extremities are weeping serous fluid. Two-plus pedal pulses. GENITOURINARY: Manzano catheter is in place draining large amounts of clear yellow urine. No bladder distention. Otherwise deferred. NEUROLOGICAL: Alert and oriented times 3. Cranial nerves II through XII grossly intact. DIAGNOSTIC DATA: Chest x-ray shows a large right pleural effusion. LABORATORY DATA: WBC 6.09. Hemoglobin 9.9. Hematocrit 32.5. Platelet count 238. PT 18.8. INR 1.45. Sodium 140. Potassium 4.7. Chloride 95. Carbon dioxide 35. BUN 23. Creatinine 1.2. Glucose 100. ProBNP 3949. ASSESSMENT AND PLAN: 1. Congestive heart failure with exacerbation. Order echocardiogram. Lasix 40 mg IV b.i.d. She received 60 mg in the emergency room and is diuresing nicely. Continue home medications. 2. Chronic atrial fibrillation. Continue Xarelto and other home medications. 3. Coronary artery disease status post bypass graft and pacemaker implantation. Aware. Continue home medications. 4. Status post mitral valve replacement. Continue blood thinners. 5. Hypothyroidism. Check TSH. Continue levothyroxine. 6. Gastroesophageal reflux disease. Continue home medications. 7. Chronic dislocation of the right radius. Has been wrapped in a bandage. We will defer to Kenrick Borden for treatment. We will give pain medicine as necessary although the patient has not complained of pain at this time. Further recommendations per patient clinical course. Dictated by RUDOLPH Jimenez for Robin Lunsford MD cc: RUDOLPH Jimenez MD Micah A. Howard, MD
--- NOTE | 2018-08-28 05:56 | PROGRESS NOTE ---
DATE: 08/28/2018 This is a [id number] encounter. Ms. Olena Aragon is an 83-year-old female, presented to the hospital because of lower extremity edema along with shortness of breath. Her proBNP level was found to be raised. X-ray of her chest shows evidence of a right pleural effusion. Her vital signs are fairly, except which she is slightly tachycardic with a heart rate of 109. She has been diagnosed as having congestive heart failure exacerbation. The patient will require diuretics and will also need a 2D echo of the heart. She does have a chronic dislocation of her right elbow and will require orthopedic evaluation. cc: Robin Lunsford MD
--- NOTE | 2018-08-28 07:24 | EKG Report ---
Test Performed on : 08/28/2018 07:04:45 AM Test Reason : chest pain Blood Pressure : / mmHG Vent. Rate : 070 BPM Atrial Rate : 067 BPM P-R Int : 000 ms QRS Dur : 170 ms QT Int : 476 ms P-R-T Axes : 000 -78 105 degrees QTc Int : 514 ms Ventricular-paced rhythm with frequent premature ventricular complexes. Abnormal ECG When compared with ECG of 27-AUG-2018 17:13, (Unconfirmed) Vent. rate has decreased BY 8 BPM Confirmed by Juliana MCGOWAN, [employer] ([id number]) on 08/28/2018 7:36:17 PM
--- NOTE | 2018-08-28 07:33 | EKG Report ---
Test Performed on : 08/27/2018 5:13:52 PM Test Reason : EDEMA Blood Pressure : / mmHG Vent. Rate : 078 BPM Atrial Rate : 241 BPM P-R Int : 000 ms QRS Dur : 160 ms QT Int : 422 ms P-R-T Axes : 000 -77 101 degrees QTc Int : 481 ms Ventricular-paced rhythm with frequent premature ventricular complexes. Abnormal ECG When compared with ECG of 04-FEB-2017 03:04, premature ventricular complexes. are now present Vent. rate has increased BY 16 BPM Unconfirmed Result
[2018-08-28 07:36] LABS: BASO# 0.05 X1000 (0.0-0.2); BASO% 1.2 % (0.0-0.8); EOS# 0.21 X1000 (0.0-0.7); EOS% 5.1 % (0.0-10.0); HEMATOCRIT 30.3 % (37.0-47.0); HEMOGLOBIN 9.5 g/dL (12.0-16.0); LYMPH# 1.06 X1000 (1.2-3.4); LYMPH% 25.7 % (20.5-51.1); MCH 29.9 PG (27-31); MCHC 31.4 g/dL (33-37); MCV 95.3 FL (81-99); MONO# 0.43 X1000 (0.11-0.59); MONO% 10.4 % (1.7-9.3); MPV 10.2 FL (7.4-10.4); NEUT# 2.37 X1000 (1.4-6.5); NEUT% 57.6 % (42.2-75.2); PLT 194 X1000 (130-400); RBC 3.18 XMIL (4.2-5.4); RDW 13.9 % (11.5-14.5); WBC 4.12 X1000 (4.8-10.8)
[2018-08-28 07:55] LABS: CALCIUM 9.2 mg/dL (8.8-10.2); CREATININE 1.1 mg/dL (0.5-0.9); MAGNESIUM 2.3 mg/dL (1.5-2.7); POTASSIUM 4.1 mmol/L (3.5-5.1)
[2018-08-28] MEDS: LANOXIN PO SCH (08:29)
[2018-08-28] MEDS: LASIX IV SCH ×2 (08:29→20:34)
[2018-08-28] MEDS: ATARAX PO SCH ×3 (08:29→16:17)
[2018-08-28] MEDS: SYNTHROID PO SCH (08:30)
[2018-08-28] MEDS: COREG PO SCH ×2 (08:30→20:34)
[2018-08-28] MEDS: XARELTO PO SCH (08:31)
[2018-08-28] MEDS: MAG-OX PO SCH (08:31)
[2018-08-28] MEDS ORDERED: LASIX IV SCH (09:00)
[2018-08-28] MEDS ORDERED: PLAVIX PO SCH (09:00)
--- NOTE | 2018-08-28 11:04 | PROGRESS NOTE ---
DATE: 08/28/2018 SUBJECTIVE: This patient is still complaining of shortness of breath, but she is feeling better. As per the patient, her lower extremities are not that swollen, but still 3+ pitting edema. I will stop her Plavix. As per the patient, she was placed before on Plavix, and the doctor stopped it. I will continue with the same management. I agree with diuresis. She has a Manzano catheter, and so far there is a negative balance of 2.3 liters. We will monitor. She does have a mild kidney dysfunction. I do not have any records from 2018. I do not know how has been her BUN and creatinine during that period, at least 1-1/2 years. OBJECTIVE: Vital Signs: Temperature 97.6 degrees, pulse 109, respiratory rate 18, blood pressure 123/40, oxygen saturation 94% on room air. HEENT: Head normocephalic. No trauma. PERRLA. Neck: Supple. She does have some JVD. Central trachea. Chest: Decreased breath sounds at the bases with crackles on the right side mostly. Abdomen: Soft, nontender, nondistended. No hepatosplenomegaly. Extremities: There is 3+ lower extremity edema. No clubbing. No cyanosis. Neurological: The patient is alert. She is oriented x3. No focal deficits. LABORATORY DATA: WBC 4.1, hemoglobin 9.5, hematocrit 30.3, platelets 194,000. Sodium 140, potassium 4.1, chloride 97, bicarbonate 34, BUN 23, creatinine 1.1, glucose 76, calcium 9.2, magnesium 2.3, TSH 4.9. ASSESSMENT AND PLAN: 1. Congestive heart failure exacerbation, pending echocardiogram. Continue with Lasix intravenously twice a day. Kidney function has been stable. She has a negative balance of 2.3 liters. Continue with home medications. 2. Chronic atrial fibrillation. Continue with Xarelto and home medication. 3. History of coronary artery disease, status post bypass graft and pacemaker implantation, aware. Continue home medication. 4. Status post mitral valve replacement. Continue blood thinners. I am not quite sure why she is not on warfarin instead of Xarelto. I will try to get some records. 5. Hypothyroidism. Continue to monitor. I will recheck her TSH level in a couple of days. 6. Gastroesophageal reflux disease. Continue with proton pump inhibitors. 7. Dislocation of the right radius. She has been wrapped in a bandage. Orthopedic surgery has been consulted. Let us wait for recommendations. cc: Braden Santos MD
--- NOTE | 2018-08-28 11:09 | Extremity Venous Study ---
PROCEDURE NAME: Venous U/S Right Arm - 08/27/2018 RIGHT UPPER EXTREMITY VENOUS DUPLEX AND COLOR FLOW IMAGING: Study done using GE vivid E9 ultrasound system with 9 L-D transducer. REFERRING PHYSICIAN: Dr. Jason from the Emergency Department CURRICULUM DEVELOPMENT SPECIALIST: Brianne Hall RVT. INDICATIONS: Pain, swelling, and bruising involving her right upper extremity. FINDINGS: The right internal jugular vein was compressible and had flow through it. The right subclavian and axillary vein had no evidence of thrombus and had flow through those veins and they were compressible. The right brachial vein was compressible throughout its length in the right arm. The cephalic and basilic veins were compressible without evidence of thrombus as was the small veins in the antecubital fossa and right forearm. There was evidence of fluid in the soft tissue consistent with hematoma. IMPRESSION: No evidence of acute deep or superficial venous thrombosis right upper extremity. cc: Opal Mckenna MD
--- NOTE | 2018-08-28 12:59 | CONSULTATION ---
DATE OF CONSULTATION: 08/28/2018 CHIEF COMPLAINT: Right elbow pain and swelling. HISTORY OF PRESENT ILLNESS: Ms. Aragon is an 83-year-old female who is complaining of right arm swelling. She denies any pain in her elbow at this time. She denies any history of any fall or any injury to her right elbow. She presented to the emergency department yesterday for lower extremity edema and dyspnea and she was admitted for further medical management. We are asked for further evaluation and treatment regarding her right elbow pain and swelling. PAST MEDICAL HISTORY, PAST SURGICAL HISTORY, ALLERGIES, MEDICATIONS: See the admission history and physical. REVIEW OF SYSTEMS: Positive for right arm swelling; all others negative. PHYSICAL EXAMINATION: General: This is an elderly female who is alert, oriented, and cooperative with examination. She is in no acute distress. Vital Signs: Temperature is 97.7 degrees, her pulse is 61. Her blood pressure is 119/45. Her oxygen saturation is 96% on room air. HEENT: Head is normocephalic, atraumatic. Neck: Supple. Respiratory: Breathing is nonlabored. Abdomen: Nondistended. Neurologic: Sensation of her right upper extremity is intact. Musculoskeletal: She has good range of motion of her right elbow without pain. There is noted crepitus on range of motion. There is noted swelling and ecchymosis throughout the elbow. She also has edema in her right hand. She has good range of motion of her right wrist without pain. Skin: Intact. 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 ASSESSMENT: Right elbow chronic dislocation. PLAN: We do not feel that there is a need for operative management at this time. It is felt that her dislocation is chronic and she has good range of motion and also little pain with range of motion. I discussed with her that she can use a compressive Ravi bandage to help with swelling. Once she is medically stable she can follow up in the office with Dr. Randhawa for further evaluation and treatment. Dictated by ANNA Moulton for Maikol Randhawa MD cc: ANNA Moulton MD [facility]
[2018-08-28] MEDS: ULTRAM PO PRN ×2 (15:08→23:40)
--- NOTE | 2018-08-28 18:10 | ECHO REPORT ---
ORDER DATE: 08/28/2018 ECHOCARDIOGRAM: ECHOCARDIOGRAPHIC MEASUREMENTS: 1. Interventricular septum 1.4. 2. Left ventricular posterior wall 1.4. 3. Diastolic diameter 4. 4. Left atrium 5.2. 5. Aorta 3.3. SUMMARY: 1. Aortic valve leaflets were calcified, trileaflet, opening normally. Pulmonic valve was normal. There was mild pulmonary regurgitation. Tricuspid valve was normal. 2. Bioprosthetic valve in the mitral position was stable. There is moderate to severe left atrial and right atrial enlargement. 3. Right ventricle is dilated with reduced right ventricular systolic function. 4. There is moderate to severe tricuspid regurgitation. Peak velocity across the tricuspid valve was 3.9 m/sec. Pulmonary artery systolic pressure of 69 to 74 mmHg. Normal left ventricular cavity size. Estimated ejection fraction of 55%. 5. Peak inflow velocity across the bioprosthetic mitral valve was 2 m/sec with a mean gradient of 5 mmHg. There is trace mitral regurgitation. 6. Peak velocity across the aortic valve less than 2 m/sec. There is no aortic stenosis. There is aortic sclerosis. There is mild aortic regurgitation. 7. There is no pericardial effusion. cc: MD Lon Finney CRNP
--- NOTE | 2018-08-29 06:40 | Diag Imaging Result Doc PS360 ---
EXAM: CHEST-PORTABLE HISTORY: dyspnea TECHNIQUE: Portable chest single view COMPARISON: 08/27/2018 FINDINGS: Sternal wires are present and there is a left-sided pacemaker. There is a small right pleural effusion with underlying atelectasis and there may be pneumonia as well. The left lung remains well expanded and clear. IMPRESSION: No interval improvement. Electronically signed by Trent Barrera 08/29/2018 6:37 AM
[2018-08-29 07:01] LABS: BASO# 0.03 X1000 (0.0-0.2); BASO% 0.6 % (0.0-0.8); EOS# 0.24 X1000 (0.0-0.7); EOS% 5.2 % (0.0-10.0); HEMATOCRIT 29.9 % (37.0-47.0); HEMOGLOBIN 9.1 g/dL (12.0-16.0); LYMPH# 0.92 X1000 (1.2-3.4); LYMPH% 19.7 % (20.5-51.1); MCH 28.8 PG (27-31); MCHC 30.4 g/dL (33-37); MCV 94.6 FL (81-99); MONO# 0.36 X1000 (0.11-0.59); MONO% 7.7 % (1.7-9.3); MPV 9.4 FL (7.4-10.4); NEUT# 3.11 X1000 (1.4-6.5); NEUT% 66.8 % (42.2-75.2); PLT 197 X1000 (130-400); RBC 3.16 XMIL (4.2-5.4); RDW 13.8 % (11.5-14.5); WBC 4.66 X1000 (4.8-10.8)
[2018-08-29 07:28] LABS: ALB/GLOB RATIO 1.1; CALCIUM 8.7 mg/dL (8.8-10.2); TOTAL BILIRUBIN 0.72 mg/dL (0.20-1.00); TOTAL PROTEIN 5.8 g/dL (6.3-8.3)
[2018-08-29] MEDS: LASIX IV SCH ×2 (09:13→21:25)
[2018-08-29] MEDS: COREG PO SCH ×2 (09:13→21:24)
[2018-08-29] MEDS: ATARAX PO SCH ×3 (09:13→17:00)
[2018-08-29] MEDS: XARELTO PO SCH (09:13)
[2018-08-29] MEDS: LANOXIN PO SCH (09:13)
[2018-08-29] MEDS: MAG-OX PO SCH (09:13)
[2018-08-29] MEDS: SYNTHROID PO SCH (09:13)
[2018-08-29] MEDS: ALDACTONE PO SCH (12:43)
--- NOTE | 2018-08-29 15:32 | CARDIOLOGY CONSULTATION ---
DATE: 08/29/2018 CHIEF COMPLAINT ON PRESENTATION: Shortness of breath and edema. Sent by PCP for evaluation. HISTORY OF PRESENT ILLNESS: Ms. Aragon is a pleasant 83-year-old female who normally sees Dr. Huitron in the office, last seen in February 2018. Primary care physician is Dr. Kenrick Borden. The patient reports over the last several days, she has been increasingly short of breath. She does not seem to have orthopnea originally when she goes to bed. However, in the middle of the night, she will get up to go to the restroom, and on returning back, she is quite short of breath and has to sit up. She reported some lower extremity edema. She has right upper extremity edema, which I have a difficult time obtaining a history from her, but it sounds like she had a fracture some time ago, and has not had this repaired. She denies any chest pain. She reports compliance with her medications. Otherwise, the patient denies any overt fevers. PAST MEDICAL HISTORY: 1. Significant for a history of mitral valve replacement with a 25 mm Maximiliano-Dao pericardial valve. This was done in February 2012, in [place]. 2. She has a history of coronary bypass, also performed in February 2012, with the DE LEON to the LAD. Her last heart catheterization was actually performed in January 2012 prior to the bypass. Subsequent to that, her last nuke was in January 2013, that demonstrated a very mild degree of inducible ischemia in the most basal portion of the anterior lateral wall. 3. Atrial fibrillation. 4. Sick sinus syndrome, with a subsequent permanent pacemaker implantation. This was a [employer] device. 5. History of carotid artery disease, with a history of CVA. 6. History of gastric ulcer. 7. COPD. 8. Reflux disease. SOCIAL HISTORY: She is . Lives at home. She has family that lives close by. No current alcohol or tobacco intake. FAMILY HISTORY: Mother with atrial fibrillation and CVA. Father had congestive heart failure. REVIEW OF SYSTEMS: A 10-system review of systems is negative, except for those things mentioned in the HPI. PHYSICAL EXAMINATION: Vital Signs: She is afebrile. Heart rate is 61. Blood pressure is 144/46. Her I's and O's appear markedly negative over the course of the hospitalization. However, there is very little intake reported. General: She is in no acute distress. Elderly. HEENT: Oropharynx is moist. Poor dentition. Her eye examination shows pink conjunctivae, white sclerae. Neck: Examination shows no obvious thyromegaly or thyroid tenderness. Cardiovascular: She sounds to be in a regular rate and rhythm. She has no obvious murmurs. She has no S3 present. She does have roughly 1+ bilateral lower extremity edema. She has marked edema to her right upper extremity, with some bruising. Her JVP does appear to be elevated. Chest: Clear bilaterally, with the exception of reduced breath sounds in the lower 1/2 of the right lung field from the posterior position. No increased work of breathing. Abdomen: Soft, nontender, nondistended. She has no obvious organomegaly. Skin: Warm and dry throughout, without any rashes. Neurological: She is moving all extremities well. No lateralizing deficits. PERTINENT DATA: Her EKG seems to show ventricular-paced complexes, with a baseline atrial rhythm of atrial fibrillation. This was noted on August 27, at 5:15 p.m. Her echocardiogram showed [id number] biatrial enlargement, bioprosthetic mitral valve, RV systolic pressure around 70, trace mitral regurgitation, with a mean gradient across the valve of 5. EF 55%. Her most recent chest x-ray suggested a right-sided effusion, with possible pneumonia. Labs show white count of 4.6, hematocrit 29, platelet count of 197,000. Her sodium was 139, potassium 4, BUN 25, creatinine 1. ProBNP is 3028, which is down from 3946 on the . Her TSH is 4.9. Her albumin is 3. ASSESSMENT: Ms. Aragon is an 83-year-old female, who presents with atrial fibrillation, shortness of breath, and what appears to be an exacerbation of diastolic heart failure. PLAN: Her mitral valve appears to be functioning well. She seems to be diuresing. Her proBNP is or coming down. I would continue with current medications and continue IV diuresis based on the results of her chest x-ray. She does seem to be diuresing adequately. She is on Lasix at 40 mg daily at home. It would be reasonable to try to increase that up to 40 mg b.i.d. For now, I would continue with the current medications and the current course of action that you have. Her sodium does appear to be normal. I will order a basic metabolic panel and a proBNP in the morning. cc: Kavon Oneal MD
[2018-08-30 07:37] LABS: BASO# 0.01 X1000 (0.0-0.2); BASO% 0.2 % (0.0-0.8); EOS# 0.18 X1000 (0.0-0.7); EOS% 3.9 % (0.0-10.0); HEMATOCRIT 28.7 % (37.0-47.0); HEMOGLOBIN 8.5 g/dL (12.0-16.0); LYMPH# 0.86 X1000 (1.2-3.4); LYMPH% 18.7 % (20.5-51.1); MCH 28.5 PG (27-31); MCHC 29.6 g/dL (33-37); MCV 96.3 FL (81-99); MONO# 0.41 X1000 (0.11-0.59); MONO% 8.9 % (1.7-9.3); MPV 9.9 FL (7.4-10.4); NEUT# 3.14 X1000 (1.4-6.5); NEUT% 68.3 % (42.2-75.2); PLT 175 X1000 (130-400); RBC 2.98 XMIL (4.2-5.4); RDW 13.9 % (11.5-14.5)
[2018-08-30 07:53] LABS: AGAP 6; BUN 30 mg/dL (8-22); CALCIUM 8.7 mg/dL (8.8-10.2); CHLORIDE 95 mmol/L (98-107); CHOLESTEROL 90 mg/dL (0-200); COSMO 285; CREATININE 1.2 mg/dL (0.5-0.9); ESTIMATED GFR 43; GLUCOSE 95 mg/dL (70-104); HDL 42 mg/dL (45-65); LDL 39 mg/dL; MAGNESIUM 2.3 mg/dL (1.5-2.7); POTASSIUM 4.3 mmol/L (3.5-5.1); SODIUM 140 mmol/L (136-145); TCO2 39 mmol/L (25-35); TRIGLYCERIDES 43 mg/dL (35-135); VLDL 9 mg/dL
[2018-08-30] MEDS: ALDACTONE PO SCH (09:00)
[2018-08-30] MEDS: SYNTHROID PO SCH (09:00)
[2018-08-30] MEDS: LANOXIN PO SCH (09:01)
[2018-08-30] MEDS: ATARAX PO SCH ×3 (09:01→17:28)
[2018-08-30] MEDS: COREG PO SCH ×2 (09:02→20:37)
[2018-08-30] MEDS: XARELTO PO SCH (09:02)
[2018-08-30] MEDS: LASIX IV SCH ×2 (09:02→20:37)
[2018-08-30] MEDS: MAG-OX PO SCH (09:02)
--- NOTE | 2018-08-30 10:55 | PROGRESS NOTE ---
DATE: 08/30/2018 SUBJECTIVE: This patient looks better today. She is still complaining of some shortness of breath. She is still having lower extremity edema but strength is going down. OBJECTIVE: Vital Signs: Temperature 97.8, pulse 80, respiratory rate 20, blood pressure 129/44. Oxygen saturation 99 on nasal cannula. HEENT: Head normocephalic. No trauma. PERRLA. Neck supple. She does have some JVD. Central trachea. Chest: Decreased breath sounds at the bases with some crackles on the right side mostly. Abdomen soft, nontender, nondistended. No hepatosplenomegaly. Extremities: 3+ lower extremity edema. No clubbing. No cyanosis. Neurologic: The patient is alert and oriented x3. No focal deficits. LABORATORY: WBC 4.6, hemoglobin 8.5, hematocrit 28.7, platelets 175,000. Sodium 140, potassium 4.3, chloride 95, bicarbonate 39. BUN 30. Creatinine 1.2, glucose 95, calcium 8.7. ProBNP 2403. HDL 42. ASSESSMENT AND PLAN: 1. Congestive heart failure exacerbation. Continue with Lasix IV. Kidney function stable. Negative balance of 1.5 L and totally we have removed around 6 L. Continue with same management. Cardiology on board. 2. Chronic atrial fibrillation. Continue with Xarelto and home medication. 3. History of coronary artery disease status post bypass graft and pacemaker implantation, aware. 4. Status post mitral valve replacement. Continue with same management. 5. Hypothyroidism. Continue to monitor. TSH is slightly elevated. 6. Gastroesophageal reflux disease. Continue with proton pump inhibitors. 7. Dislocation of the right radius. Orthopedic surgery on board. Ultrasound did not show any blood clots. cc: Braden Santos MD
[2018-08-31 07:22] LABS: BASO# 0.02 X1000 (0.0-0.2); BASO% 0.4 % (0.0-0.8); EOS# 0.13 X1000 (0.0-0.7); EOS% 2.9 % (0.0-10.0); HEMATOCRIT 30.3 % (37.0-47.0); HEMOGLOBIN 8.9 g/dL (12.0-16.0); LYMPH# 0.82 X1000 (1.2-3.4); MCH 28.9 PG (27-31); MCHC 29.4 g/dL (33-37); MCV 98.4 FL (81-99); MONO# 0.35 X1000 (0.11-0.59); MONO% 7.7 % (1.7-9.3); MPV 9.6 FL (7.4-10.4); NEUT# 3.24 X1000 (1.4-6.5); PLT 180 X1000 (130-400); RBC 3.08 XMIL (4.2-5.4); WBC 4.56 X1000 (4.8-10.8)
[2018-08-31 08:02] LABS: CALCIUM 8.6 mg/dL (8.8-10.2); CREATININE 1.3 mg/dL (0.5-0.9); POTASSIUM 4.5 mmol/L (3.5-5.1)
[2018-08-31] MEDS: MAG-OX PO SCH (10:18)
[2018-08-31] MEDS: COREG PO SCH ×2 (10:18→20:45)
[2018-08-31] MEDS: SYNTHROID PO SCH (10:18)
[2018-08-31] MEDS: ATARAX PO SCH ×3 (10:18→20:45)
[2018-08-31] MEDS: ALDACTONE PO SCH (10:18)
[2018-08-31] MEDS: LANOXIN PO SCH (10:19)
[2018-08-31] MEDS: XARELTO PO SCH (10:19)
[2018-08-31] MEDS: LASIX IV SCH (10:23)
--- NOTE | 2018-08-31 12:04 | PROGRESS NOTE ---
DATE: 08/31/2018 SUBJECTIVE: The patient states that she is feeling about the same compared with yesterday. She is still complaining of some shortness of breath. She is still having some lower extremity edema, but is getting better. So far we have a negative balance of 6.7 L and she is feeling better. Since her BUN and creatinine increased in compared with the baseline, I will stop the IV Lasix and I will put her on 40 mg p.o. of Lasix starting tonight and I will monitor this closely. OBJECTIVE: Vital Signs: Temperature 98.6 degrees, pulse 60, respiratory rate 20, blood pressure 132/39, oxygen saturation 98 on 2 L of nasal cannula. HEENT: Head normocephalic. No trauma. PERRLA. Neck: Supple. No JVD. Central trachea. Chest: Decreased breath sounds at the bases with some crackles on the right side mostly. Abdomen: Soft, nontender, nondistended. No hepatosplenomegaly. Extremities: 2 to 3+ lower extremity edema. No clubbing. No cyanosis. Her right upper arm is swollen and as per the patient, this is chronic. 3+ edema as well. Neurological: Alert and oriented x3. No focal deficits. LABORATORY: WBC 4.5, hemoglobin 8.9, hematocrit 30.3, platelets 180,000. Sodium 139, potassium 4.5, chloride 94, bicarbonate 38, BUN 32, creatinine 1.3, glucose 111, calcium 8.6. ASSESSMENT AND PLAN: 1. Congestive heart failure exacerbation, continue with Lasix, but I will stop the IV and I will put her on p.o. starting this afternoon. We have been having a negative balance total of 6.7 L. Continue to monitor. Cardiology on board. 2. Chronic atrial fibrillation. Continue with Xarelto and home medication. 3. History of coronary artery disease status post bypass graft and pacemaker implantation. Aware. 4. Status post mitral valve replacement. Continue with same management. 5. Hypothyroidism. Continue to monitor. TSH is slightly elevated. 6. Gastroesophageal reflux disease. Continue with proton pump inhibitors. 7. Dislocation of the right radius. Orthopedic Surgery on board. Ultrasound did not show any blood clots. I will recommend to elevate the arm so the swelling can get better. cc: Braden Santos MD
[2018-08-31] MEDS: LASIX PO SCH (20:45)
[2018-09-01 07:18] LABS: BASO# 0.01 X1000 (0.0-0.2); BASO% 0.2 % (0.0-0.8); EOS% 3.7 % (0.0-10.0); HEMATOCRIT 29.3 % (37.0-47.0); HEMOGLOBIN 8.6 g/dL (12.0-16.0); LYMPH# 1.07 X1000 (1.2-3.4); LYMPH% 19.9 % (20.5-51.1); MCH 28.8 PG (27-31); MCHC 29.4 g/dL (33-37); MONO# 0.52 X1000 (0.11-0.59); MONO% 9.7 % (1.7-9.3); MPV 9.5 FL (7.4-10.4); NEUT# 3.57 X1000 (1.4-6.5); NEUT% 66.5 % (42.2-75.2); PLT 174 X1000 (130-400); RBC 2.99 XMIL (4.2-5.4); WBC 5.37 X1000 (4.8-10.8)
[2018-09-01 07:49] LABS: CALCIUM 8.9 mg/dL (8.8-10.2); CREATININE 1.1 mg/dL (0.5-0.9); POTASSIUM 4.6 mmol/L (3.5-5.1)
[2018-09-01] MEDS: SYNTHROID PO SCH (08:36)
[2018-09-01] MEDS: XARELTO PO SCH (08:37)
[2018-09-01] MEDS: LASIX PO SCH ×2 (08:37→21:14)
[2018-09-01] MEDS: COREG PO SCH ×2 (08:37→21:15)
[2018-09-01] MEDS: ALDACTONE PO SCH (08:37)
[2018-09-01] MEDS: ATARAX PO SCH ×3 (08:37→21:13)
[2018-09-01] MEDS: LANOXIN PO SCH (08:37)
[2018-09-01] MEDS: MAG-OX PO SCH (08:37)
--- NOTE | 2018-09-01 10:42 | PROGRESS NOTE ---
DATE: 09/01/2018 SUBJECTIVE: This patient states that she is feeling a little bit better compared with yesterday. She is complaining of generalized weakness and some shortness of breath mostly with physical activity. She is still having lower extremity edema. So far we have removed 8 L of fluid. BUN and creatinine have been stable. We will continue with the same management. Cardiology Department on board. OBJECTIVE: Vital Signs: Temperature 98 degrees, pulse 63, respiratory rate 18, blood pressure 152/47, oxygen saturation 96% on 2 L of nasal cannula. HEENT: Head normocephalic. No trauma. PERRLA. Neck: Supple. She does have some JVD. Central trachea. Chest: Decreased breath sounds at the bases with some crackles on the right side mostly. Abdomen: Soft, nontender, nondistended. No hepatosplenomegaly. Extremity: 2 to 3+ lower extremity edema. No clubbing. No cyanosis. The right upper arm is also swollen, but as per the patient, this is chronic due to a previous fracture/luxation. 2 to 3+ edema as well. Neurological: This patient is alert. She is oriented x3. No focal deficits. LABORATORY: WBC 5.3, hemoglobin 8.6, hematocrit 29.3, platelets 174,000. Sodium 136, potassium 4.6, chloride 91, bicarbonate 37, BUN 35, creatinine 1.1, glucose 78, calcium 8.9. ProBNP 2617. ASSESSMENT AND PLAN: 1. Congestive heart failure exacerbation, continue with Lasix p.o. twice a day, continue to monitor in and outs. So far we have been having a negative balance of 8 L totally. Continue to monitor. Cardiology on board. 2. Chronic atrial fibrillation. Continue with Xarelto and home medication. 3. History of coronary artery disease status post bypass graft placement and pacemaker implantation. Aware. No chest pain at this moment. 4. Status post mitral valve replacement. Aware. 5. Hypothyroidism. Continue to monitor. TSH is slightly elevated. We need to recheck the thyroid hormone in a few days as an outpatient probably. 6. Gastroesophageal reflux disease. Continue with proton pump inhibitors. 7. Dislocation of the right radius. Orthopedic Surgery on board. Ultrasound did not show any blood clots. I recommended to elevate the arm so the swelling can get better. 8. Physical deconditioning and generalized weakness. As per the patient, she is feeling more weak. I proposed to her to send this patient to a rehab center, but she will think about it. I do believe this patient can be discharged in the next 24 to 48 hours if she does not want to go to a rehab center. Overall, this patient is getting better. She is still having some fluid overload. She is using oxygen here, but she does not use oxygen at home. Probably we need to ask for a home O2 evaluation before sending this patient home. Since this patient is weak, I put this patient a few days ago on physical therapy and occupational therapy. I recommended to the patient to go to a rehab center and she will think about it. I do believe she can be discharged in the next 24 to 48 hours if she does not want to go to a rehab center. cc: Braden Santos MD
[2018-09-01] MEDS: MIRALAX PO SCH (15:20)
[2018-09-01] MEDS: TYLENOL PO PRN (21:18)
[2018-09-02 07:20] LABS: BASO# 0.02 X1000 (0.0-0.2); BASO% 0.4 % (0.0-0.8); EOS# 0.26 X1000 (0.0-0.7); EOS% 5.8 % (0.0-10.0); HEMATOCRIT 29.6 % (37.0-47.0); HEMOGLOBIN 8.6 g/dL (12.0-16.0); LYMPH# 1.06 X1000 (1.2-3.4); LYMPH% 23.6 % (20.5-51.1); MCH 28.6 PG (27-31); MCHC 29.1 g/dL (33-37); MCV 98.3 FL (81-99); MONO# 0.43 X1000 (0.11-0.59); MONO% 9.6 % (1.7-9.3); MPV 9.7 FL (7.4-10.4); NEUT# 2.72 X1000 (1.4-6.5); NEUT% 60.6 % (42.2-75.2); PLT 173 X1000 (130-400); RBC 3.01 XMIL (4.2-5.4); RDW 13.9 % (11.5-14.5); WBC 4.49 X1000 (4.8-10.8)
[2018-09-02 07:34] LABS: CALCIUM 8.1 mg/dL (8.8-10.2); CREATININE 1.1 mg/dL (0.5-0.9); MAGNESIUM 2.3 mg/dL (1.5-2.7); POTASSIUM 4.5 mmol/L (3.5-5.1)
--- NOTE | 2018-09-02 07:40 | Diag Imaging Result Doc PS360 ---
EXAM: CHEST-2 VIEWS 09/02/2018 HISTORY: hypoxia TECHNIQUE: AP and lateral chest COMMENT: There is cardiomegaly. There is a mitral valve prosthesis. The patient is rotated slightly to the right. There is probable right pleural fluid. There may be a minimal degree of interstitial pulmonary edema. IMPRESSION: Cardiomegaly and right pleural effusion. Minimal pulmonary edema. Electronically signed by Jeffy Warren 09/02/2018 7:38 AM
[2018-09-02] MEDS: SYNTHROID PO SCH (08:53)
[2018-09-02] MEDS: LANOXIN PO SCH (08:53)
[2018-09-02] MEDS: COREG PO SCH ×2 (08:54→20:38)
[2018-09-02] MEDS: MAG-OX PO SCH (08:54)
[2018-09-02] MEDS: ATARAX PO SCH ×3 (08:54→16:22)
[2018-09-02] MEDS: LASIX PO SCH ×2 (08:54→20:38)
[2018-09-02] MEDS: XARELTO PO SCH (08:54)
[2018-09-02] MEDS: MIRALAX PO SCH (08:54)
[2018-09-02] MEDS: ALDACTONE PO SCH (08:54)
--- NOTE | 2018-09-02 11:51 | PROGRESS NOTE ---
DATE: 08/29/2018 SUBJECTIVE: This patient states that she is still having shortness of breath. We have a negative fluid balance of 2.1 L and so far, we have been removing 4.4 L. This patient has CHF. Echocardiogram showed an ejection fraction of 55, with a right ventricle that is dilated with decreased systolic function. Will continue with anticoagulation due to her atrial fibrillation already. OBJECTIVE: Vital Signs: Temperature 97.6 degrees, pulse 113, respiratory rate 16, blood pressure 129/56, oxygen saturation 95% on room air. HEENT: Head normocephalic. No trauma. PERRLA. Neck: Supple. She does have some JVD. Central trachea. Chest: Decreased breath sounds at the bases with crackles on the right side mostly. Abdomen: Soft, nontender, nondistended. No hepatosplenomegaly. Extremities: 3+ lower extremity edema. No clubbing. No cyanosis. Neurological: Alert and oriented x3. No focal deficits. LABORATORY: WBC 4.6, hemoglobin 9.1, hematocrit 29.9, platelets 197,000. Sodium 139, potassium 4, chloride 95, bicarbonate 35, BUN 25, creatinine 1, glucose 78, calcium 8.7. AST 17, ALT 7, alkaline phosphatase 80. ProBNP 3028. Albumin 3. ASSESSMENT AND PLAN: 1. Congestive heart failure exacerbation. Echocardiogram showed a right ventricle systolic function that has decreased. The right ventricle is also dilated. Her systolic ejection fraction is around 55%. We will continue with diuresis. So far, we have been removing 4.4 L. Cardiology department has been consulted. 2. Chronic atrial fibrillation. Continue with Xarelto and home medications. 3. History of coronary artery disease status post bypass graft and pacemaker implantation, aware. Continue with home medications. 4. Status post mitral valve replacement. Continue with blood thinners. I am not quite sure why she is not on warfarin instead of Xarelto. We will try to get some records and/or cardiology on board. 5. Hypothyroidism. Continue to monitor. I will recheck the TSH level. 6. Gastroesophageal reflux disease. Continue with proton-pump inhibitors. 7. Dislocation of the right radius. She has been evaluated already by Orthopedic Surgery Department. For now, they are not going to treat this condition. 8. Right upper extremity swelling. Will ask for a new venous Doppler ultrasound of that arm to rule out deep venous thrombosis. cc: Braden Santos MD
--- NOTE | 2018-09-02 16:09 | PROGRESS NOTE ---
DATE: 09/02/2018 SUBJECTIVE: The patient resting comfortably in bed. Not in any obvious distress. OBJECTIVE: Vital signs are as follows: Temperature 97.9, pulse 61, respirations 20, blood pressure 139/42, Oxygen saturation 99% on room air. HEENT: Head is atraumatic , normocephalic. Cardiovascular: S1, S2. Respiratory System: Good air entry bilaterally. Abdomen soft, nontender. No masses felt. Extremities has 1+ edema in both lower extremities. Central Nervous System: No obvious focal deficits noted. LABORATORY DATA: WBC is 4.49. Hematocrit is 29.8, hematocrit 9.6, platelet count of 173,000. Sodium is 136, potassium 4.5, chloride 95, bicarb 21. , creatinine 1.1. ProBNP level is 2781. X-ray of the chest shows cardiomegaly with right pleural effusion. Minimal pulmonary edema. ASSESSMENT AND PLAN: 1. Acute diastolic heart failure. Continue to monitor intakes and outputs, as well as daily weights. Continue diuretics. 2. Chronic atrial fibrillation. Continue rate controlling agent. Digoxin as well as Xarelto. Cardiology following. 3. History of coronary artery disease, status post coronary artery bypass graft , asymptomatic. 4. History of mitral valve replacement, aware. 5. Hypothyroidism. Continue levothyroxine. 6. Gastroesophageal reflux disease, continue proton pump inhibitor. 7. History of a dislocation, right radius. Orthopedic Surgery consulted. 8. Deconditioning. Physical Therapy recommended. DISPOSITION: 1. I think the patient will benefit from rehab placement and, as such, we will consult with Occupational Medicine Officer. 2. Deep vein thrombosis prophylaxis. The patient is on Xarelto. 3. Gastrointestinal prophylaxis. Proton pump inhibitor. cc: Robin Lunsford MD [facility]
--- NOTE | 2018-09-02 17:39 | ED EKG INTERP ---
This chart was entered by Anne Roper Scribe, acting as scribe for Rabia Chatterjee MD. EKG Interpretation - EKG Time of EKG reading by physician:: 17:13 EKG Read and Signed by:: Rabia Chatterjee EKG Interpretation (*Must complete 3 of following elements*): Abnormal Rate: 78 Rhythm: ventricular paced Two Dot: normal QRS: PVC's NH Interval: normal Attestation - Physician/ JYOTSNA Attestation The physician spent face to face time with patient:: Yes Advanced Practice Provider documentation review:: Supervising physician onsite and consulted in the evaluation and care of this patient. The physician did have a face to face encounter with the patient. This chart was documented by the indicated scribe, (Anne Roper Scribe) and accurately reflects the services I performed and decisions made by me, Rabia Chatterjee MD, as attested by the provider's signature.
[2018-09-03] MEDS: PROTONIX PO SCH (06:29)
[2018-09-03 06:46] LABS: BASO# 0.02 X1000 (0.0-0.2); BASO% 0.5 % (0.0-0.8); EOS# 0.24 X1000 (0.0-0.7); HEMATOCRIT 31.3 % (37.0-47.0); HEMOGLOBIN 9.2 g/dL (12.0-16.0); LYMPH# 0.85 X1000 (1.2-3.4); LYMPH% 21.1 % (20.5-51.1); MCH 28.9 PG (27-31); MCHC 29.4 g/dL (33-37); MCV 98.4 FL (81-99); MONO# 0.34 X1000 (0.11-0.59); MONO% 8.5 % (1.7-9.3); MPV 9.8 FL (7.4-10.4); NEUT# 2.57 X1000 (1.4-6.5); NEUT% 63.9 % (42.2-75.2); PLT 186 X1000 (130-400); RBC 3.18 XMIL (4.2-5.4); RDW 13.8 % (11.5-14.5); WBC 4.02 X1000 (4.8-10.8)
[2018-09-03 07:26] LABS: ALBUMIN 3.1 g/dL (3.5-5.0); CALCIUM 8.4 mg/dL (8.8-10.2); POTASSIUM 4.8 mmol/L (3.5-5.1); TOTAL BILIRUBIN 0.46 mg/dL (0.20-1.00); TOTAL PROTEIN 6.1 g/dL (6.3-8.3)
--- NOTE | 2018-09-03 07:36 | Diag Imaging Result Doc PS360 ---
EXAM: CHEST-1 VIEW INDICATION: chf TECHNIQUE: One view COMPARISON: 09/02/2018 FINDINGS: Right pleural fluid collection is approximately stable. Interstitial edema on the right may have worsened slightly. No new consolidation is identified, otherwise. Cardiac silhouette is stable. IMPRESSION: Slight worsening of interstitial edema on the right. Stable chest, otherwise. Electronically signed by Ashwin Velázquez 09/03/2018 7:34 AM
[2018-09-03] MEDS: LANOXIN PO SCH (09:40)
[2018-09-03] MEDS: ALDACTONE PO SCH (09:40)
[2018-09-03] MEDS: XARELTO PO SCH (09:40)
[2018-09-03] MEDS: LASIX PO SCH ×2 (09:40→20:23)
[2018-09-03] MEDS: SYNTHROID PO SCH (09:40)
[2018-09-03] MEDS: ATARAX PO SCH ×3 (09:40→16:59)
[2018-09-03] MEDS: COREG PO SCH ×2 (09:40→20:23)
[2018-09-03] MEDS: MIRALAX PO SCH (09:40)
[2018-09-03] MEDS: MAG-OX PO SCH (09:40)
--- NOTE | 2018-09-03 12:53 | PROGRESS NOTE ---
DATE: 09/03/2018 SUBJECTIVE: The patient is awake. Not in any obvious distress. She is seated on the chair. OBJECTIVE: Vital signs: Temperature 98.2 degrees, pulse 70, respiratory rate 18, blood pressure 119/24, oxygen saturation is 99%. HEENT: Patient is atraumatic, normocephalic. Cardiovascular: S1, S2. Irregular. Respiratory: Good air entry bilaterally. Abdomen: Soft, nontender. No masses felt. Extremities: Has 1 to 2+ edema in the lower extremities. Central nervous system: No obvious focal deficits noted. LABS: WBC is 4.02, hematocrit 31.3, with a platelet count of [id number], sodium is 139, potassium 4.8, chloride is 92, bicarb 21, BUN is 37, creatinine is 1.0. ASSESSMENT AND PLAN: 1. Acute diastolic heart failure. Continue to monitor intakes and outputs, as well as daily weights. Continue diuretics. 2. Chronic atrial fibrillation. Continue digoxin as well as Xarelto. Cardiology following. 3. History of coronary artery disease. Status post coronary artery bypass graft. Asymptomatic. 4. History of mitral valve replacement. Aware. 5. Hypothyroidism. Continue levothyroxine. 6. Gastroesophageal reflux disease. Continue proton pump inhibitor. 7. History of right radius dislocation. Orthopedic surgery consulted. 8. Deconditioning. PT recommended. 9. Disposition: The patient will need rehab placement. 10. Deep vein thrombosis prophylaxis. The patient is on Xarelto. 11. Gastrointestinal prophylaxis. PPI. cc: Robin Lunsford MD [facility]
[2018-09-04] MEDS: PROTONIX PO SCH (06:02)
--- NOTE | 2018-09-04 07:13 | Diag Imaging Result Doc PS360 ---
EXAM: CHEST-1 VIEW 09/04/2018 HISTORY: chf TECHNIQUE: AP portable at 0529 COMMENT: There is cardiomegaly. There is atelectasis versus pneumonia in the right lower lobe. The appearance of the chest has not changed significantly since 09/03/2018. There has been no appreciable change since 09/02/2018. IMPRESSION: Atelectasis versus pneumonia right lower lobe. Electronically signed by Jeffy Warren 09/04/2018 7:11 AM
[2018-09-04 07:19] LABS: BASO# 0.01 X1000 (0.0-0.2); BASO% 0.2 % (0.0-0.8); EOS# 0.12 X1000 (0.0-0.7); EOS% 2.8 % (0.0-10.0); HEMATOCRIT 31.1 % (37.0-47.0); HEMOGLOBIN 8.9 g/dL (12.0-16.0); LYMPH# 0.57 X1000 (1.2-3.4); LYMPH% 13.2 % (20.5-51.1); MCHC 28.6 g/dL (33-37); MCV 101.3 FL (81-99); MONO# 0.34 X1000 (0.11-0.59); MONO% 7.9 % (1.7-9.3); MPV 9.6 FL (7.4-10.4); NEUT# 3.28 X1000 (1.4-6.5); NEUT% 75.9 % (42.2-75.2); PLT 180 X1000 (130-400); RBC 3.07 XMIL (4.2-5.4); RDW 13.7 % (11.5-14.5); WBC 4.32 X1000 (4.8-10.8)
[2018-09-04 07:42] LABS: ALBUMIN 3.2 g/dL (3.5-5.0); CALCIUM 8.5 mg/dL (8.8-10.2); CREATININE 1.2 mg/dL (0.5-0.9); POTASSIUM 5.2 mmol/L (3.5-5.1); TOTAL BILIRUBIN 0.39 mg/dL (0.20-1.00); TOTAL PROTEIN 6.3 g/dL (6.3-8.3)
[2018-09-04] MEDS: XARELTO PO SCH (09:58)
[2018-09-04] MEDS: LANOXIN PO SCH (09:58)
[2018-09-04] MEDS: SYNTHROID PO SCH (09:58)
[2018-09-04] MEDS: ALDACTONE PO SCH (09:58)
[2018-09-04] MEDS: ATARAX PO SCH ×3 (09:58→18:10)
[2018-09-04] MEDS: MAG-OX PO SCH (09:59)
[2018-09-04] MEDS: COREG PO SCH ×2 (09:59→20:23)
[2018-09-04] MEDS: MIRALAX PO SCH (09:59)
[2018-09-04] MEDS: LASIX PO SCH ×2 (09:59→20:23)
[2018-09-04] MEDS: ZYVOX PO SCH (20:23)
[2018-09-04] MEDS: AUGMENTIN PO SCH (20:23)
--- NOTE | 2018-09-05 01:19 | PROGRESS NOTE ---
DATE: 09/04/2018 SUBJECTIVE: The patient resting in bed, not in any obvious distress. OBJECTIVE: Vital Signs: Temperature 98.1 degrees, pulse 71, respiratory rate 18, blood pressure 128/35, oxygen saturation 100%. HEENT: Atraumatic, normocephalic. Cardiovascular System: S1, S2. Irregular. Respiratory System: Good air entry bilaterally. Abdomen: Soft, nontender. No masses felt. Extremities: Edema in both lower extremities. Central Nervous System: No obvious focal deficits noted. LABS: WBC is 12.32. Hematocrit is 31.1, with a platelet count of 180,000. Sodium is 141, potassium 4.2, chloride 92, bicarb 23, BUN is 41, creatinine is 1.2. IMAGING: X-ray chest shows atelectasis versus pneumonia, right lower lobe. ASSESSMENT AND PLAN: 1. Acute diastolic heart failure. Monitor intake and output, as well as daily weights. Continue diuretics. 2. Chronic atrial fibrillation. Continue digoxin, as well as Xarelto. 3. History of coronary artery disease, status post coronary artery bypass graft. Asymptomatic. 4. History of mitral valve replacement. Aware. 5. Hypothyroidism. Continue levothyroxine. 6. Gastroesophageal reflux disease. Continue proton pump inhibitor. 7. History of dislocation in the right elbow region. Orthopedics consulted. 8. Probable pneumonia. Check sputum culture, blood cultures. Start patient on antibiotics. 9. Deconditioning. PT recommended. 10. Disposition. Patient will be going home with home health services, as she turned down rehab placement. 11. Deep vein thrombosis prophylaxis, Xarelto. 12. Gastrointestinal prophylaxis, proton pump inhibitor. cc: Robin Lunsford MD
[2018-09-05] MEDS: PROTONIX PO SCH (06:27)
--- NOTE | 2018-09-05 07:32 | Diag Imaging Result Doc PS360 ---
CHEST-1 VIEW - 09/05/2018 INDICATION: pneumonia COMPARISON: 09/04/2018 FINDINGS: Stable pacemaker. Stable surgical changes to the heart. Stable cardiomegaly and pulmonary vascular congestion. Stable significant opacification of the right lung base due to atelectasis and/or effusion. No new infiltrates. IMPRESSION: No change from prior. Electronically signed by Constantin Ly 09/05/2018 7:30 AM
[2018-09-05 07:55] LABS: BASO# 0.03 X1000 (0.0-0.2); BASO% 0.7 % (0.0-0.8); EOS# 0.11 X1000 (0.0-0.7); EOS% 2.5 % (0.0-10.0); HEMATOCRIT 34.1 % (37.0-47.0); HEMOGLOBIN 9.5 g/dL (12.0-16.0); LYMPH# 0.92 X1000 (1.2-3.4); LYMPH% 20.6 % (20.5-51.1); MCH 28.4 PG (27-31); MCHC 27.9 g/dL (33-37); MCV 101.8 FL (81-99); MONO# 0.38 X1000 (0.11-0.59); MONO% 8.5 % (1.7-9.3); MPV 9.9 FL (7.4-10.4); NEUT# 3.03 X1000 (1.4-6.5); NEUT% 67.7 % (42.2-75.2); PLT 180 X1000 (130-400); RBC 3.35 XMIL (4.2-5.4); RDW 13.6 % (11.5-14.5); WBC 4.47 X1000 (4.8-10.8)
[2018-09-05 08:03] LABS: ALB/GLOB RATIO 0.9; ALBUMIN 3.3 g/dL (3.5-5.0); CALCIUM 9.3 mg/dL (8.8-10.2); CREATININE 1.2 mg/dL (0.5-0.9); POTASSIUM 5.2 mmol/L (3.5-5.1); TOTAL BILIRUBIN 0.37 mg/dL (0.20-1.00); TOTAL PROTEIN 6.8 g/dL (6.3-8.3)
[2018-09-05] MEDS: MAG-OX PO SCH (08:48)
[2018-09-05] MEDS: XARELTO PO SCH (08:48)
[2018-09-05] MEDS: MIRALAX PO SCH (08:48)
[2018-09-05] MEDS: ATARAX PO SCH ×3 (08:48→16:48)
[2018-09-05] MEDS: LANOXIN PO SCH (08:48)
[2018-09-05] MEDS: ZYVOX PO SCH (08:49)
[2018-09-05] MEDS: LASIX PO SCH (08:49)
[2018-09-05] MEDS: COREG PO SCH (08:49)
[2018-09-05] MEDS: ALDACTONE PO SCH (08:49)
[2018-09-05] MEDS: SYNTHROID PO SCH ×2 (08:49→09:00)
[2018-09-05] MEDS: AUGMENTIN PO SCH (08:50)
[2018-09-05] MEDS ORDERED: LEVAQUIN PO SCH (09:00)
[2018-09-05] MEDS ORDERED: SYNTHROID PO SCH (09:00)
[2018-09-05 11:29] VITALS: BP 133/39
[2018-09-05] MEDS: KAYEXALATE PO ONE ×2 (14:41→14:53)
[2018-09-05] MEDS ORDERED: FLU VACCINE IM ONE (15:47)
--- NOTE | 2018-09-30 12:40 | DISCHARGE SUMMARY ---
ADMISSION DATE: 08/27/2018 DISCHARGE DATE: 09/05/2018 PRINCIPAL DIAGNOSIS: Acute diastolic heart failure. SECONDARY DIAGNOSES: 1. Chronic atrial fibrillation. 2. Coronary artery disease. 3. Mitral valve replacement. 4. Hypothyroidism. 5. Gastroesophageal reflux disease. 6. Probable pneumonia. 7. Dislocation right elbow. DISCHARGE MEDICATIONS: 1. Levaquin 500 mg p.o. daily. 2. Zyvox 600 mg p.o. twice a day. 3. Augmentin 875 mg p.o. twice a day. 4. Coreg 12.5 mg p.o. twice a day. 5. Levothyroxine 100 mcg p.o. daily. 6. Digoxin 125 mcg p.o. daily. 7. Magnesium oxide 400 mg p.o. daily. 8. Hydroxyzine 25 mg p.o. 3 times a day. 9. Xarelto 15 mg p.o. daily. 10. Aldactone 25 mg p.o. once a day. 11. Lasix 40 mg p.o. daily. CONSULTATIONS DONE DURING HOSPITAL STAY: Cardiology, Dr. Kavon Oneal. For Orthopedics Dr. Randhawa. PROCEDURES DONE DURING HOSPITAL STAY: Echocardiogram done on 08/28/2018. HOSPITAL COURSE: Ms. Olena Aragon is an 83-year-old female who presented to the hospital because of lower extremity edema as well as shortness of breath. ProBNP level was found to be raised. X- ray of the chest showed evidence of right pleural effusion. The patient was diagnosed as having CHF exacerbation and required diuretics. A 2D echo of her heart showed estimated ejection fraction of about 55%. She was also treated for possible pneumonia during the course of the hospital stay and was discharged home on 09/05/2018. PLAN: The patient was to follow up with primary care physician as well as a press officer. The patient was also to be discharged home with home health services ([facility] . cc: Robin Lunsford MD MTDD
== END 2018-09-05 18:35 | disposition home health service (06) | DRG 291 ==
LOC: ED 16:38 → SUATTDRO 21:30 → 3N 21:30
PROVIDERS: ATTEND Internal Medicine
CPT/HCPCS: 51702; 71010; 71020; 71045; 71046; 73080; 80048; 80053; 80061; 81001; 82270; 82550; 83735; 83880; 84443; 84484; 85025; 85610; 85730; 87040; 90686; 93005; 93010; 93306; 93971; 94760; 94761; 96374; 97110; 97116; 97162; 97166; 97530; 97535; 99285; A9270; J1940

== ENCOUNTER 2018-09-07 09:42 | Inpatient (IN) ==
--- NOTE | 2018-09-07 10:45 | Diag Imaging Result Doc PS360 ---
EXAM: CT HEAD W/O CONTRAST INDICATION: ams TECHNIQUE: This exam was performed using automated exposure control, adjustment of mA or kV according to patient size, and/or use of iterative reconstruction technique. 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 There is no definite acute infarct given the limited sensitivity of CT versus MRI. There is no discrete intracranial mass, mass effect, or intracranial hemorrhage. The surrounding soft tissues and bony structures are essentially unremarkable. IMPRESSION: Stable head with no evidence of acute pathology. Electronically signed by Ashwin Velázquez 09/07/2018 10:42 AM
[2018-09-07 10:57] LABS: URINE SOURCE CATH
[2018-09-07 11:01] LABS: BILIRUBIN URINE NEGATIVE (NEGATIVE); BLOOD URINE NEGATIVE (NEGATIVE); COLOR YELLOW; GLUCOSE URINE NEGATIVE (NEGATIVE); KETONE URINE NEGATIVE (NEGATIVE); LEUKOCYTES URINE NEGATIVE (NEGATIVE); NITRITE URINE NEGATIVE (NEGATIVE); PROTEIN URINE TRACE mg/dL (NEGATIVE); SP GRAVITY URINE 1.009; TURBIDITY URINE CLEAR (CLEAR); UR EPITHELIAL CELLS <10 /HPF (<10); URINE BACTERIA NEGATIVE /HPF; URINE RBC <10 /HPF (<10); URINE WBC <10 /HPF (<10); UROBILINOGEN URINE NORMAL (NORMAL)
[2018-09-07 11:07] LABS: BASO# 0.02 X1000 (0.0-0.2); BASO% 0.4 % (0.0-0.8); EOS# 0.09 X1000 (0.0-0.7); HEMATOCRIT 30.1 % (37.0-47.0); HEMOGLOBIN 8.7 g/dL (12.0-16.0); LYMPH# 0.68 X1000 (1.2-3.4); MCH 29.1 PG (27-31); MCHC 28.9 g/dL (33-37); MCV 100.7 FL (81-99); MONO# 0.49 X1000 (0.11-0.59); MONO% 10.8 % (1.7-9.3); MPV 10.2 FL (7.4-10.4); NEUT# 3.26 X1000 (1.4-6.5); NEUT% 71.8 % (42.2-75.2); PLT 182 X1000 (130-400); RBC 2.99 XMIL (4.2-5.4); RDW 13.7 % (11.5-14.5); WBC 4.54 X1000 (4.8-10.8)
[2018-09-07 11:14] LABS: ALB/GLOB RATIO 1.2; ALBUMIN 3.5 g/dL (3.5-5.0); CREATININE 1.2 mg/dL (0.5-0.9); POTASSIUM 4.3 mmol/L (3.5-5.1); TOTAL BILIRUBIN 0.4 mg/dL (0.20-1.00); TOTAL PROTEIN 6.5 g/dL (6.3-8.3)
--- NOTE | 2018-09-07 13:14 | PROVIDER DOCUMENTATION ---
This chart was entered by Radha Cristobal Scribe, acting as scribe for Greg Vergara MD. HPI-General Adult - General Chief Complaint: Altered Mental Status Stated Complaint: AMS Time Seen by Provider: 09/07/18 10:00 Source: patient Allergies/Adverse Reactions: Patient Allergies Allergy/AdvReac Type Severity Reaction Status Date / Time Aminoglycosides Allergy Severe Unknown Verified 02/03/17 21:16 polymyxin B Allergy Severe RASH Verified 02/03/17 21:16 streptomycin [Streptomycin] Allergy Severe Unknown Verified 02/03/17 21:16 Home Medications: Home Medication List Medication Instructions Recorded Confirmed Last Taken Type Carvedilol 12.5 mg PO BID 11/16/13 08/27/18 06/13/15 08:00 History Digoxin [Lanoxin] 125 microgm PO DAILY 11/16/13 08/27/18 06/13/15 08:00 History Levothyroxine [Synthroid] 100 microgm PO DAILY 11/16/13 08/27/18 06/13/15 08:00 History Magnesium Oxide [Mag-Ox] 400 mg PO DAILY tablet 02/07/17 08/27/18 Unknown Rx Furosemide [Lasix] 40 mg PO DAILY 08/27/18 08/27/18 Unknown History Hydroxyzine [Atarax] 25 mg PO TID 08/27/18 08/27/18 Unknown History Rivaroxaban [Xarelto] 15 mg PO DAILY 08/27/18 08/27/18 Unknown History Spironolactone 25 mg PO DAILY PRN 08/27/18 08/27/18 Unknown History Amoxicillin/Pot Clavulanate 875 mg PO Q12HR #14 tablet 09/05/18 Unknown Rx [Augmentin] Levofloxacin [Levaquin] 500 mg PO DAILY #7 tablet 09/05/18 Unknown Rx Linezolid [Zyvox] 600 mg PO BID #14 tablet 09/05/18 Unknown Rx - History of Present Illness -Gen Adult Nature of Presenting Problems: 83 y/o female presents to ED with AMS onset 2 days ago and progressively worsening. Pt is nonverbal at this time, so family speaks for her and presents history. Family reports she was recently admitted for CHF and pneumonia and discharged 2 days ago. Family states she was confused and less responsive than usual at the time of discharge, but was discharged anyway. Family reports she would repeat things back to them and get up to use the bathroom with assistance before today. Family states that this morning, she stopped speaking or responding at all. Family reports that she usually lives alone, so this is very unusual for her. Family states she has been eating and drinking normally. Family reports she is currently taking augmentin, levaquin, and zyvox. Pt is alert and makes eye contact. Location of Pain/Injury: reports: none Pain Radiation: reports: no radiation Quality of Pain: reports: none Severity: reports: severe Onset/Duration: reports: 2 days ago Timing: reports: still present, getting worse Context/Activities at Onset: reports: none Modifying Factors: improves with: nothing Associated Symptoms: reports: other (AMS, decreased responsiveness) Similar Symptoms Previously?: No Recently seen or treated by another doctor?: Yes (admitted for over 1 week/ discharged 2 days ago) Review of Systems - Adult - REVIEW OF SYSTEMS - ADULT ROS:: ROS per family Constitutional: reports: other (AMS, decreased responsiveness). denies: chills , fever Eyes: reports: no symptoms reported Ears, Nose, Mouth & Throat: reports: no symptoms reported Cardiovascular: reports: no symptoms reported Respiratory: reports: no symptoms reported Gastrointestinal: reports: no symptoms reported Genitourinary: reports: no symptoms reported Musculoskeletal: reports: no symptoms reported Integumentary: reports: no symptoms reported Neurological: reports: no symptoms reported Psychiatric: reports: no symptoms reported Endocrine: reports: no symptoms reported Hematologic/Lymphatic: reports: no symptoms reported Allergic/Immunologic: reports: no symptoms reported All Other Systems: Reviewed and Negative Past History - Adult - PAST MEDICAL HISTORY-ADULT Review of Records: reports: Old Records Reviewed, Nursing Assessment Review, Medications Reviewed Major Childhood Illnesses: reports: denies history Cardiovascular: reports: A-Fib, CAD, CHF, HTN, heart valve problem, pacemaker Respiratory: reports: denies history Gastrointestinal: reports: denies history Obstetrical/Gynecological: reports: denies history Genitourinary: reports: denies history Musculoskeletal: reports: denies history, arthritis Neurological: reports: denies history Endocrine/Immune: reports: denies history, thyroid disorder Other Conditions: reports: denies history, cataract/glaucoma - PRIOR SURGERIES/PROCEDURES Surgical/Procedure History: reports: appendectomy, CABG, cholecystectomy, pacemaker, hysterectomy, orthopedic (extremity) (bilateral knees; R shoulder), joint replacement (knee), back/neck (back), other (heart valve replacement; cataract removal) - IMMUNIZATION STATUS Childhood Immunizations: See Nurse Assessment Flu Vaccine: See Nurse Assessment - FAMILY HISTORY Family History: reviewed, not pertinent - SOCIAL HISTORY Smoking: non-smoker Substance Use: none/never Alcohol Use Frequency: never Living Situation: family Physical Exam-General - PHYSICAL EXAM-ADULT Initial Vital Signs Reviewed: Yes - CONSTITUTIONAL General Appearance: appears well, alert, no apparent distress, other (makes attempts to speak, but is unable to; makes eye contact; listens to people in room talking; attempts to follow commands, but is unable to) - EYES Eyes: PERRL/EOMI, pink conjunctivae - HEAD, EARS, NOSE, MOUTH & THROAT HENMT: normocephalic/atraumatic, moist mucous membranes, normal ENT inspection - NECK Neck: non-tender, full range of motion - RESPIRATORY Respiratory: chest non-tender, no respiratory distress, decreased breath sounds , rhonchi, dull on percussion. negative: lungs clear, normal breath sounds - CARDIOVASCULAR Cardiovascular: normal peripheral pulses, regular rate, rhythm, gallop/S3 - GASTROINTESTINAL (ABDOMEN) Abdominal Exam: normal bowel sounds, non tender, soft - MUSCULOSKELETAL Back Exam: normal inspection, no CVA tenderness Extremity: normal range of motion, non-tender, swelling (R elbow due to old injury; 2 plus pitting edema of bilateral lower extremities). negative: normal gait - SKIN Integumentary: normal color, warm/dry - NEUROLOGIC Neurologic: other (makes attempts to speak, but is unable to; makes eye contact ; listens to people in room talking; attempts to follow commands, but is unable to) - PSYCHIATRIC Psych/Mental Status: other (makes attempts to speak, but is unable to; makes eye contact; listens to people in room talking; attempts to follow commands, but is unable to) Progress - PLAN OF CARE/RESULTS Progress/Plan/Lab Results: Vital Signs - 8 hr 09/07/18 10:40 Temperature 98.9 F Pulse Rate 62 Respiratory Rate 19 Blood Pressure 150/56 O2 Sat by Pulse Oximetry 98 Laboratory Results - last 24 hr 09/07/18 09/07/18 09/07/18 10:00 10:00 10:02 WBC 4.54 L RBC 2.99 L Hgb 8.7 L Hct 30.1 L MCV 100.7 H MCH 29.1 MCHC 28.9 L RDW Std Deviation 13.7 Plt Count 182 MPV 10.2 Immature Gran % (Auto) 0.0 Neut % (Auto) 71.8 Lymph % (Auto) 15.0 L Camp % (Auto) 10.8 H Eos % (Auto) 2.0 Baso % (Auto) 0.4 Immature Gran # (Auto) 0.00 Neut # (Auto) 3.26 Lymph # (Auto) 0.68 L Camp # (Auto) 0.49 Eos # (Auto) 0.09 Baso # (Auto) 0.02 Sodium 137 Potassium 4.3 Chloride 88 L Carbon Dioxide 45 H Anion Gap 4 BUN 36 H Creatinine 1.2 H Estimated GFR/1.73 m2 43 BUN/Creatinine Ratio 30 Glucose 147 H POC Glucose 144 H Calculated Osmolality 285 Calcium 9.0 Total Bilirubin 0.40 AST 20 ALT 8 L Alkaline Phosphatase 97 Total Protein 6.5 Albumin 3.5 Globulin 3.0 Albumin/Globulin Ratio 1.2 Urine Source Urine Color Urine Turbidity Urine pH Ur Specific [place] Urine Protein Ur Glucose (Stick) Ur Ketones (Stick) Urine Blood Urine Nitrite Urine Bilirubin Urobilinogen Dipstick Urine Leukocytes Urine WBC (Auto) Urine RBC (Auto) U Epithel Cells (Auto) Urine Bacteria (Auto) 09/07/18 10:12 WBC RBC Hgb Hct MCV MCH MCHC RDW Std Deviation Plt Count MPV Immature Gran % (Auto) Neut % (Auto) Lymph % (Auto) Camp % (Auto) Eos % (Auto) Baso % (Auto) Immature Gran # (Auto) Neut # (Auto) Lymph # (Auto) Camp # (Auto) Eos # (Auto) Baso # (Auto) Sodium Potassium Chloride Carbon Dioxide Anion Gap BUN Creatinine Estimated GFR/1.73 m2 BUN/Creatinine Ratio Glucose POC Glucose Calculated Osmolality Calcium Total Bilirubin AST ALT Alkaline Phosphatase Total Protein Albumin Globulin Albumin/Globulin Ratio Urine Source CATH Urine Color YELLOW Urine Turbidity CLEAR Urine pH 7.0 Ur Specific [place] 1.009 Urine Protein TRACE A Ur Glucose (Stick) NEGATIVE Ur Ketones (Stick) NEGATIVE Urine Blood NEGATIVE Urine Nitrite NEGATIVE Urine Bilirubin NEGATIVE Urobilinogen Dipstick NORMAL Urine Leukocytes NEGATIVE Urine WBC (Auto) <10 Urine RBC (Auto) <10 U Epithel Cells (Auto) <10 Urine Bacteria (Auto) NEGATIVE Orders Category Date Time Status CHEST-2 VIEWS [RAD] Stat Exams 09/07/18 10:[address] HEAD W/O CONTRAST [CT] Stat Exams 09/07/18 10:00 Completed CBC WITH ELECTRONIC DIFF [HEME] Stat Lab 09/07/18 10:00 Completed COMPREHENSIVE METABOLIC PANEL [CHEM] Stat Lab 09/07/18 10:00 Completed URINALYSIS W/POSS RFLX CULT [URINALYSIS] Stat Lab 09/07/18 10:12 Completed EKG [EKG] Stat Ther 09/07/18 10:01 Ordered A/P: AMS and LLL pnuemonia. Was DC 4 days ago, had decine in mentation since DC. Will admit for possible MRI and and AB for pneumonia. Result Diagrams: 09/07/18 10:00 09/07/18 10:00 - EKG 1 Time of EKG reading by physician:: 09:58 EKG Read and Signed by:: Greg Vergara EKG Interpretation (*Must complete 3 of following elements*): Abnormal Rate: 62 Rhythm: Ventricular-paced Hamel: normal QRS: normal OH Interval: normal ST Wave: normal - XRAY 1 XRAY Study: Chest Impression: Abnormal (L lower lobe pneumonia. Cardiomegaly. Post-surgical changes. -Dr. Howell and Dr. 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 There is no definite acute infarct given the limited sensitivity of CT versus MRI. There is no discrete intracranial mass, mass effect, or intracranial hemorrhage. The surrounding soft tissues and bony structures are essentially unremarkable. IMPRESSION: Stable head with no evidence of acute pathology. Electronically signed by Ashwin Velázquez 09/07/2018 10:42 AM) - CONSULTS/PCP/HOSPITALIST Notification #1 *Consult/PCP/Hospitalist*: RUDOLPH Romo for Dr. Hoang Time Discussed: 11:52 Reason/Comments: AMS; decreased responsiveness; pneumonia Consult Disposition: Admit Departure - Departure Date of Disposition Decision: 09/07/18 Time of Disposition Decision: 11:54 DIAGNOSIS: Altered mental status Qualifiers: Altered mental status type: unspecified Qualified Code(s): R41.82 - Altered mental status, unspecified Pneumonia Qualifiers: Pneumonia type: due to unspecified organism Laterality: left Lung location: lower lobe of lung Qualified Code(s): J18.1 - Lobar pneumonia, unspecified organism Disposition: ADMITTED INPATIENT 09 Certified Medical Emergency: Emergent Condition: Fair Additional Freetext Instructions: ED Follow Up Instructions: You have been treated by a care provider in the Emergency Department. These instructions are being provided to you so you can have an understanding of how to care for yourself upon discharge. Upon discharge from the Emergency Department, you are responsible for making arrangements for follow-up care by a physician of your choice. Take all prescribed medications as directed. Return to the Emergency Department immediately for any new or worsening symptoms. You may call the Physician Referral phone number at [phone] to obtain a list of Physicians who are taking new patients. Referrals and Follow-Ups: Kenrick Borden MD [Primary Care Provider] - Discharge Education: Confusion - Critical Care Note This patient required my direct & personal management of CC.: No Attestation - Physician/ JYOTSNA Attestation Patient care was provided by Advanced Practice Provider:: No The physician spent face to face time with patient:: Yes Advanced Practice Provider documentation review:: Supervising physician onsite and consulted in the evaluation and care of this patient. The physician did have a face to face encounter with the patient. This chart was documented by the indicated scribe, (Radha Cristobal Scribe) and accurately reflects the services I performed and decisions made by me, Greg Vergara MD, as attested by the provider's signature.
[2018-09-07] MEDS ORDERED: TYLENOL PO PRN (13:30)
[2018-09-07] MEDS ORDERED: ZOFRAN IV PRN (13:30)
[2018-09-07] MEDS ORDERED: ALDACTONE PO SCH (13:30)
--- NOTE | 2018-09-07 13:50 | HISTORY AND PHYSICAL ---
HISTORY OF PRESENT ILLNESS: This is an 83-year-old, who is a patient Dr. Boston Borden, who states she was just in the hospital 08/27/2018 to 09/05/2018. At that time she was treated for acute diastolic heart failure. Secondary diagnosis coronary artery disease status post CABG, chronic atrial fibrillation, history of mitral valve replacement, hypothyroidism, history of dislocation right elbow, gastroesophageal reflux. Family states she has been doing fairly well but the last couple days she has got a week where she does not want to walk and she is less responsive. Not talking. She has not received any new medications. She is still getting antibiotics for her pneumonia and she has underlying atrial fibrillation. She really did not talk to me. Her eyes tract. She acknowledged my presence. She did not seem to be in any distress, was out agitated. She is moving all of her extremities. Family denies any fever or signs of focal pain such as chest pain or cough or sputum production and she is at home with her daughter and home health is coming to the house. PAST MEDICAL HISTORY: 1. Mitral valve replacement, Maximiliano-Dao valve 2011. 2. Coronary artery bypass single-vessel bypass in 2011 when she had a valve replacement I believe. 3. Cholecystectomy. 4. Low back surgery. 5. Bilateral knee replacement. 6. Right shoulder replacement. 7. Hysterectomy. 8. Appendectomy. SOCIAL HISTORY: She is a . Was living alone and now is living with her family. Home health this coming week. No history of alcohol or tobacco or illicit drugs. FAMILY HISTORY: Mother had a history of atrial fibrillation and CVA. Father had congestive heart failure. Brother with a stroke. Mother at age 60 of metastatic bladder cancer. ALLERGIES: Polymyxin, streptomycin, aminoglycosides. HOME MEDICATIONS: I believe she is on Coreg 12.5 b.i.d., Plavix 75 mg a day, digoxin 125 mcg daily, Lasix 40 mg a day, Atarax 25 mg a day, Xarelto 15 mg, magnesium oxide 400 mg a day, spironolactone 25 mg a day, Ultram 50 mg q.8 h. p.r.n., Tylenol 650 mg q.6 h. p.r.n., and levothyroxine 100 mcg daily. REVIEW OF SYSTEMS: Constitutional: Mainly obtained from her daughter. Have not recognized any weight gain or loss. No fever or chills. HEENT: She has not seen any sign of change in hearing or visual acuity. Neck: Has not had any pain or noticed any adenopathy. Respiratory: No upper respiratory complaints such as sinus tenderness or postnasal drainage. No increased work of breathing or dyspnea. No pleuritic pain noted. Did not seem to be coughing or have bronchial irritation. Cardiovascular: No chest pain or tachy palpitation reported. She has underlying atrial fibrillation. GI and : Bowels have been moving. No sign of blood in the stool. No nausea or vomiting. Gastrointestinal and Genitourinary: No gross hematuria or dysuria. Musculoskeletal/Neurologic: No focal complaints, just general weakness. Not wanting to get up and get out of bed and not talking to them and does not appear to be attempting to answer questions. PHYSICAL EXAMINATION: VITAL SIGNS: In the emergency room temperature 98.9 degrees, pulse 62, respirations 19, blood pressure 150/56. HEENT: Pupils are equal. Oral and nasal mucosa unremarkable. Conjunctivae pink. NECK: No distended neck veins. LUNGS: CVP less than 6 cm. LYMPHATICS: No cervical supraclavicular, axillary, or femoral adenopathy. LUNGS: Clear anterior and posterior in all lung rodriguez. CARDIOVASCULAR: Regular rhythm and rate without murmur or S3. PMI nondisplaced. ABDOMEN: Soft, nontender. No hepatojugular reflux. No hepatosplenomegaly. EXTREMITIES: Without clubbing, cyanosis. I will give her 1+ edema, the right is a little bigger than the left but the daughter states that this is much better than when she came in the hospital last time so she I think has some chronic venous insufficiency and diastolic dysfunction. No sign of rashes. LABORATORY STUDIES: White count 4540, hematocrit is 30, platelet count 182,000. Sodium 137, potassium 4.3, chloride 88, BUN 36, creatinine 1.2. Calcium 9.0. AST 20, ALT is 8. Albumin 3.5. Urinalysis unremarkable. RADIOLOGIC STUDIES: CT of the head without contrast. Stable head. No evidence of acute pathology. Chest x-ray reviewed. She does have a prosthetic right shoulder. Also see pacemaker mediastinoscope median sternotomy wires, cardiomegaly, questionable infiltrate left lingular but very large heart. ASSESSMENT AND PLAN: 1. Encephalopathy. She seems to be catatonic not attempting to talk I do not see focal neurologic deficits. Cranial nerves II through XII seem to be intact. Motor strength seems to be equal on both sides and I do not see any sign of sensory deficit. Visual rodriguez seem to be full and she is seems to be tracking with her eyes. Electrolytes fairly unremarkable. Review of her medications: She is on Augmentin 875 mg twice a day, Coreg 12.5 b.i.d., digoxin 125 mcg daily. We will check a digoxin level. Will check a magnesium. She is on Lasix 40 mg, Atarax 25 mg t.i.d., Levaquin 500 mg daily, Synthroid 100 mcg daily. We will check her T4 and TSH and linezolid 600 mg p.o. b.i.d., her Mag-Ox 400 mg daily and she is on Xarelto 50 mg daily, and spironolactone. 2. Underlying atrial fibrillation. Rate appears to be controlled. She is on Coreg 12.5 b.i.d., digoxin 125 mcg daily, and she is on Xarelto 15 mg daily. 3. History of diastolic dysfunction and chronic venous insufficiency. She is taking spironolactone 25 mg daily and Lasix 40 mg a day. We will check magnesium level, check phosphorus and calcium, B12, and folate and check her thyroid functions. 4. She has a history of coronary artery disease with a single bypass graft in 2011, also mitral valve replacement in 2011. There is no sign that the valve is not working or dysfunctional and no sign of active ischemia. We will check troponin and creatine kinase. She has a very large heart. Looking back at her last echocardiogram which was on 08/28/2018, aortic valve leaflets were calcified, trileaflet opening normally. There is mild pulmonary regurgitation, tricuspid valve was normal. Bioprosthetic valve in the mitral position. Moderate to severe left atrial and right atrial enlargement. Right ventricle dilated. Reduced right ventricular systolic function. There is moderate to severe tricuspid regurgitation. Pulmonary artery pressure is 68 to 74 mmHg. Normal left cavity size and ejection fraction 55%. The aortic valve, there is no aortic stenosis. No pericardial effusion at that time. I think we will repeat an echo but she obviously has pulmonary hypertension. Her left ventricular function seems to be okay but her right arterial pressures are above 70 and so she will be easy to tip into cor pulmonale I believe. Right now her volume status seems to be good. We will continue her current medications. 5. Being treated for pneumonia. Looking back in November there was no growth on blood cultures but treating her nonetheless on some antibiotics. At this point I think I am going to stop her antibiotics and see how we do. cc: Francisco Javier Hoang MD
[2018-09-07 14:37] LABS: FREE T4 1.67 ng/dL (0.93-1.70)
[2018-09-07 14:38] LABS: TSH 7.31 uIUmL (0.27-4.20)
[2018-09-07] MEDS: NS 1,000 ML IV SCH (16:00)
[2018-09-07] MEDS: COREG PO SCH (22:02)
[2018-09-08] MEDS: NS 1,000 ML IV SCH ×3 (02:50→21:31)
--- NOTE | 2018-09-08 07:01 | EKG Report ---
Test Performed on : 09/08/2018 06:48:49 AM Test Reason : chest pain Blood Pressure : / mmHG Vent. Rate : 066 BPM Atrial Rate : 077 BPM P-R Int : 000 ms QRS Dur : 164 ms QT Int : 452 ms P-R-T Axes : 000 -79 101 degrees QTc Int : 473 ms Sinus rhythm. with Ventricular-paced rhythm Right bundle branch block Abnormal ECG When compared with ECG of 07-SEP-2018 09:58, (Unconfirmed) Vent. rate has increased BY 4 BPM Confirmed by Juliana MCGOWAN, [employer] ([id number]) on 09/08/2018 11:53:24 AM
--- NOTE | 2018-09-08 07:20 | EKG Report ---
Test Performed on : 09/07/2018 09:58:26 AM Test Reason : CP Blood Pressure : / mmHG Vent. Rate : 062 BPM Atrial Rate : 064 BPM P-R Int : 000 ms QRS Dur : 166 ms QT Int : 466 ms P-R-T Axes : 000 -70 107 degrees QTc Int : 472 ms Ventricular-paced rhythm Abnormal ECG When compared with ECG of 28-AUG-2018 07:04, premature ventricular complexes. are no longer present Vent. rate has decreased BY 8 BPM Unconfirmed Result
--- NOTE | 2018-09-08 07:28 | Diag Imaging Result Doc PS360 ---
EXAM: CHEST-PORTABLE HISTORY: pneumonia TECHNIQUE: Chest single view COMPARISON: 09/07/2018 FINDINGS: The heart is enlarged. A heart valve has been replaced and there is a left-sided pacemaker. There is at least a small right-sided pleural effusion similar to the prior study. There are calcified mediastinal nodes. There is mild vascular distention. Atelectasis is present in the right base. IMPRESSION: No interval improvement. Electronically signed by Trent Barrera 09/08/2018 7:26 AM
[2018-09-08 08:21] LABS: BASO# 0.03 X1000 (0.0-0.2); BASO% 0.6 % (0.0-0.8); EOS# 0.06 X1000 (0.0-0.7); EOS% 1.3 % (0.0-10.0); HEMATOCRIT 32.2 % (37.0-47.0); HEMOGLOBIN 9.2 g/dL (12.0-16.0); LYMPH# 0.63 X1000 (1.2-3.4); LYMPH% 13.4 % (20.5-51.1); MCH 28.7 PG (27-31); MCHC 28.6 g/dL (33-37); MCV 100.3 FL (81-99); MONO# 0.35 X1000 (0.11-0.59); MONO% 7.4 % (1.7-9.3); NEUT# 3.63 X1000 (1.4-6.5); NEUT% 77.3 % (42.2-75.2); PLT 184 X1000 (130-400); RBC 3.21 XMIL (4.2-5.4)
[2018-09-08] MEDS ORDERED: CALMOSEPTINE OINTMENT TOP PRN (08:50)
[2018-09-08 08:53] LABS: ALB/GLOB RATIO 1.1; ALBUMIN 3.4 g/dL (3.5-5.0); CALCIUM 9.3 mg/dL (8.8-10.2); CREATININE 1.1 mg/dL (0.5-0.9); MAGNESIUM 2.2 mg/dL (1.5-2.7); POTASSIUM 4.5 mmol/L (3.5-5.1); TOTAL BILIRUBIN 0.52 mg/dL (0.20-1.00); TOTAL PROTEIN 6.4 g/dL (6.3-8.3)
--- NOTE | 2018-09-08 09:05 | PROGRESS NOTE ---
DATE: 09/08/2018 SUBJECTIVE: Ms. Aragon is awake, and talking, and pleasant, and seems to be alert. Knows she is in the hospital. So, a big change from yesterday. She is swallowing okay, and drank some milk this morning. Just arrived up in [facility]. OBJECTIVE: Vital signs: Afebrile, temp 98.2 degrees, pulse 70, respirations 23, blood pressure 157/63. Pupils: Are equal and round. Lungs: Clear in all lung rodriguez. Cardiovascular: Regular rate without murmur or S3. Abdomen: Soft. Skin: Warm and dry. Extremities: She has Trace edema in both legs, right is bigger than the left. Urine Output: Was 1800 mL. RADIOLOGY: Chest x-ray, really showed no change from yesterday. The chest x-ray from this morning: Enlarged heart. You can see that heart valve has been replaced, left-sided pacemaker. She has a small right-sided pleural effusion. Calcified mediastinal nodes, mild vascular distention. Atelectasis is present in the right base. EKG, from this morning, showed a paced rhythm with a right bundle-branch pattern and PVCs appreciated. ASSESSMENT AND PLAN: 1. Encephalopathy, just lethargy and did not really want to talk or to try and get up out of bed. We will get physical therapy to kind of assess how we are doing. I went ahead and stopped her antibiotics. Her digoxin level is 1.5, but I stopped her Augmentin and Levaquin. Note that her thyroid appears to be euthyroid, but we stopped the Augmentin, the Levaquin and linezolid. 2. Atrial fibrillation. She is in paced rhythm. She does have cardiomegaly and previous echo shows significant right ventricular pressures consistent with pulmonary hypertension. 3. She has diastolic dysfunction and pulmonary arterial hypertension. So, I think her volume status is appropriate. She is on spironolactone and Lasix. 4. History of coronary artery disease, status post single bypass in 2011. She also had mitral valve replacement at that time. I do not see any evidence of active ischemia. 5. She had been treated for pneumonia. I do not see any new infiltrate. I think we can stop her antibiotics, and this may be contributing to her metabolic encephalopathy. 6. Looking at her orders, she is on Coreg 12.5 b.i.d., Lasix 40 mg a day, Synthroid 100 mcg daily, Mag-Ox 400 mg a day. Getting normal saline at 75 mL an hour. Xarelto 15 mg a day, spironolactone 25 mg a day. She is on a regular diet. I will cut her fluids down to 45 mL an hour, and we will get physical therapy to see how we do. cc: Francisco Javier Hoang MD
[2018-09-08] MEDS: LASIX PO SCH (09:08)
[2018-09-08] MEDS: MAG-OX PO SCH (09:08)
[2018-09-08] MEDS: ALDACTONE PO SCH (09:08)
[2018-09-08] MEDS: XARELTO PO SCH (09:08)
[2018-09-08] MEDS: SYNTHROID PO SCH (09:08)
[2018-09-08] MEDS: COREG PO SCH ×2 (09:08→21:31)
[2018-09-08 09:14] LABS: HYPOCHROM 1+; LYMPHS 16 % (21-51); MONO 2 % (1-9); SEGS 82 % (42-75)
[2018-09-08] MEDS ORDERED: BLISTEX MEDICATED BERRY LIP BALM TOP ONE (13:42)
[2018-09-09] MEDS: NS 1,000 ML IV SCH (05:59)
[2018-09-09] MEDS: SYNTHROID PO SCH (05:59)
[2018-09-09 06:15] LABS: AGAP 4; BUN 25 mg/dL (8-22); CALCIUM 9.2 mg/dL (8.8-10.2); CHLORIDE 97 mmol/L (98-107); COSMO 285; CREATININE 0.8 mg/dL (0.5-0.9); ESTIMATED GFR > 60; GLUCOSE 83 mg/dL (70-104); MAGNESIUM 2.2 mg/dL (1.5-2.7); POTASSIUM 4.5 mmol/L (3.5-5.1); SODIUM 141 mmol/L (136-145); TCO2 40 mmol/L (25-35)
[2018-09-09 06:16] LABS: BASO# 0.01 X1000 (0.0-0.2); BASO% 0.2 % (0.0-0.8); EOS# 0.11 X1000 (0.0-0.7); EOS% 2.7 % (0.0-10.0); HEMATOCRIT 31.3 % (37.0-47.0); HEMOGLOBIN 8.9 g/dL (12.0-16.0); LYMPH# 0.81 X1000 (1.2-3.4); LYMPH% 19.7 % (20.5-51.1); MCH 28.9 PG (27-31); MCHC 28.4 g/dL (33-37); MCV 101.6 FL (81-99); MONO# 0.31 X1000 (0.11-0.59); MONO% 7.5 % (1.7-9.3); MPV 9.6 FL (7.4-10.4); NEUT# 2.87 X1000 (1.4-6.5); NEUT% 69.9 % (42.2-75.2); PLT 164 X1000 (130-400); RBC 3.08 XMIL (4.2-5.4); RDW 13.9 % (11.5-14.5); WBC 4.11 X1000 (4.8-10.8)
--- NOTE | 2018-09-09 06:56 | Diag Imaging Result Doc PS360 ---
EXAM: CHEST-PORTABLE HISTORY: dyspnea TECHNIQUE: Portable chest single view COMPARISON: 09/08/2018 FINDINGS: A heart valve has been replaced. There is a left-sided pacemaker. The heart is enlarged. There is a small to moderate-sized right pleural effusion with a small left pleural effusion. There are calcified left hilar and nodes. IMPRESSION: No interval improvement. Electronically signed by Trent Barrera 09/09/2018 6:53 AM
[2018-09-09] MEDS: LASIX PO SCH (08:55)
[2018-09-09] MEDS: MAG-OX PO SCH (08:55)
[2018-09-09] MEDS: COREG PO SCH ×2 (08:56→23:38)
[2018-09-09] MEDS: ALDACTONE PO SCH (08:56)
[2018-09-09] MEDS: XARELTO PO SCH (08:56)
--- NOTE | 2018-09-09 09:07 | Diag Imaging Result Doc PS360 ---
EXAM: CHEST-2 VIEWS INDICATION: AMS TECHNIQUE: 2 views COMPARISON: 09/05/2018 FINDINGS: Pulmonary venous congestion is approximately stable. There is stable dense opacification of the right lung base likely representing effusion with adjacent atelectasis and/or infiltrate. No new consolidation is identified. Cardiac silhouette is stable. IMPRESSION: Stable chest. Electronically signed by Ashwin Velázquez 09/07/2018 11:04 AM
--- NOTE | 2018-09-09 18:57 | PROGRESS NOTE ---
DATE: 09/09/2018 SUBJECTIVE: The patient is resting comfortably in bed. She states that she has no complaints, no acute events noted overnight. OBJECTIVE: Vital Signs: Temperature 98.1 degrees, blood pressure 147/84, heart rate 66, respirations 16, O2 saturations 100% on 3 L nasal cannula. General: This is a chronically ill- appearing elderly female lying in bed in no acute distress. Heart: S1, S2 normal. Regular rate and rhythm. Lungs: Equal air entry bilaterally. No crackles, no rales. Abdomen: Positive bowel sounds. Soft, nontender, nondistended. Extremities: No edema, no cyanosis. Neuro: The patient is alert but confused. LABS: White blood cell count 4, hemoglobin 8.9, hematocrit 31, platelets 164, 000. Sodium 141, potassium 4.5, chloride 97, CO2 40, BUN 25, creatinine 0.8, glucose 119. Chest x-ray shows a moderate right pleural effusion. ASSESSMENT AND PLAN: 1. Encephalopathy. The patient's mental status is slowly improving. There is no evidence of infection. Will continue to monitor the patient for improvement. 2. Moderate right pleural effusion. Stable. The patient is currently on 3 L nasal cannula. Continue with diuretic therapy. 3. Atrial fibrillation. Rate controlled. Continue on Xarelto and Coreg. 4. Hypothyroidism. Continue on Synthroid. 5. Disposition. Will consult physical therapy. cc: Kate Maldonado MD MTDD
[2018-09-09] MEDS: LASIX IV SCH (23:38)
[2018-09-10] MEDS: SYNTHROID PO SCH (06:33)
[2018-09-10 08:32] LABS: CALCIUM 8.9 mg/dL (8.8-10.2); CREATININE 0.9 mg/dL (0.5-0.9); MAGNESIUM 2.1 mg/dL (1.5-2.7); PHOSPHORUS 3.2 mg/dL (2.7-4.5); POTASSIUM 4.6 mmol/L (3.5-5.1)
[2018-09-10 09:29] LABS: HEMATOCRIT 33.6 % (37.0-47.0); HEMOGLOBIN 9.3 g/dL (12.0-16.0); MCH 28.4 PG (27-31); MCHC 27.7 g/dL (33-37); MCV 102.8 FL (81-99); MPV 10.1 FL (7.4-10.4); RBC 3.27 XMIL (4.2-5.4); RDW 14.1 % (11.5-14.5); WBC 4.05 X1000 (4.8-10.8)
[2018-09-10] MEDS: ALDACTONE PO SCH ×2 (10:08→10:39)
[2018-09-10] MEDS: COREG PO SCH ×2 (10:08→19:59)
[2018-09-10] MEDS: XARELTO PO SCH (10:08)
[2018-09-10] MEDS: MAG-OX PO SCH ×2 (10:08→10:41)
[2018-09-10] MEDS: LASIX IV SCH ×2 (10:09→19:59)
--- NOTE | 2018-09-11 04:07 | PROGRESS NOTE ---
DATE: 09/10/2018 SUBJECTIVE: The patient is resting comfortably in bed. She tends to be nonverbal at times. OBJECTIVE: Vital Signs: Temperature 98.5 degrees, blood pressure 170/39, heart rate 60, respirations 18, oxygen saturation 100% on 2 L nasal cannula. Urine output 1 L. General: This is a chronically ill-appearing elderly female, lying in bed, in no acute distress. Head: Normocephalic, atraumatic. Heart: S1, S2 normal. Lungs: Coarse breath sounds. No wheezing. Abdomen: Positive bowel sounds. Soft, nontender, nondistended. Extremities: 3+ edema in the upper extremities, 2+ in the lower extremities. Neurologic: The patient is awake, but nonverbal. LABS: White blood cell count 4.4, hemoglobin 9.3, hematocrit 33, platelets 171,000. Sodium 145, potassium 4.6, chloride 97, CO2 40, BUN 27, creatinine 0.9, glucose 90, albumin 3.1. ASSESSMENT AND PLAN: 1. Congestive heart failure exacerbation. We will continue with diuretic therapy. We will monitor the patient's intake and output closely. We will consult with the dairy manufacturing technologist with further recommendations. 2. Right pleural effusion. Continue with diuretic therapy. Will repeat the chest x-ray tomorrow. 3. Hypothyroidism. Continue on Synthroid. 4. Atrial fibrillation. Continue on Coreg and Xarelto. 5. Anemia. Stable. 6. Disposition. Will consult with palliative care to discuss the goals of care. cc: Kate Maldonado MD
[2018-09-11] MEDS: SYNTHROID PO SCH (06:14)
--- NOTE | 2018-09-11 07:12 | Diag Imaging Result Doc PS360 ---
EXAM: CHEST-PORTABLE 09/11/2018 HISTORY: pulmonary edema/pleural effusion TECHNIQUE: AP portable at 0613 COMMENT: There is cardiomegaly. There is a mitral valve prosthesis. There is a small amount of pleural fluid on the left and possibly more on the right. The right lower and middle lobes are obscured and there may be atelectasis. The possibility of pneumonia cannot be excluded. Compared to the previous examination of 09/09/2018 there has been no appreciable change. IMPRESSION: Pleural effusions. Right lower and middle lobe atelectasis versus pneumonia. Cardiomegaly. Electronically signed by Jeffy Warren 09/11/2018 7:09 AM
[2018-09-11 07:58] LABS: HEMATOCRIT 31.5 % (37.0-47.0); HEMOGLOBIN 8.9 g/dL (12.0-16.0); MCH 29.1 PG (27-31); MCHC 28.3 g/dL (33-37); MCV 102.9 FL (81-99); MPV 9.4 FL (7.4-10.4); RBC 3.06 XMIL (4.2-5.4); WBC 5.89 X1000 (4.8-10.8)
[2018-09-11 08:15] LABS: ESTIMATED GFR > 60
[2018-09-11 08:22] LABS: AGAP 6; BUN 22 mg/dL (8-22); CALCIUM 8.7 mg/dL (8.8-10.2); CHLORIDE 95 mmol/L (98-107); COSMO 295; CREATININE 0.7 mg/dL (0.5-0.9); GLUCOSE 121 mg/dL (70-104); PHOSPHORUS 3.1 mg/dL (2.7-4.5); POTASSIUM 4.1 mmol/L (3.5-5.1); SODIUM 146 mmol/L (136-145); TCO2 45 mmol/L (25-35)
[2018-09-11] MEDS: ALDACTONE PO SCH (09:54)
[2018-09-11] MEDS: COREG PO SCH ×2 (09:54→22:28)
[2018-09-11] MEDS: ZYVOX 600 MG/D5W 600 MG/300 ML IVPB IV SCH ×2 (09:54→20:30)
[2018-09-11] MEDS: XARELTO PO SCH (09:54)
[2018-09-11] MEDS: MAXIPIME 1 GM in NS 50 ML IV SCH ×2 (09:54→20:30)
[2018-09-11] MEDS: MAG-OX PO SCH (09:54)
--- NOTE | 2018-09-11 10:24 | EKG Report ---
Test Performed on : 09/11/2018 10:07:56 AM Test Reason : dyspnea Blood Pressure : / mmHG Vent. Rate : 062 BPM Atrial Rate : 036 BPM P-R Int : 000 ms QRS Dur : 168 ms QT Int : 442 ms P-R-T Axes : 000 -75 105 degrees QTc Int : 448 ms Ventricular-paced rhythm with occasional premature ventricular complexes. Abnormal ECG When compared with ECG of 08-SEP-2018 06:48, premature ventricular complexes. are now present Vent. rate has decreased BY 4 BPM Confirmed by Juliana MCGOWAN, [employer] ([id number]) on 09/11/2018 6:49:56 PM
--- NOTE | 2018-09-11 12:24 | CARDIOLOGY CONSULTATION ---
DATE: 09/11/2018 CHIEF COMPLAINT ON PRESENTATION: Was apparently shortness of breath. HISTORY OF PRESENT ILLNESS: Ms. Aragon is an 83-year-old female with a relatively recent hospitalization for congestive heart failure and re-presentation roughly 2 days after discharge. She is a very poor historian, who verbalizes very little but seems to understand what we were talking about. She complains of some mild cough productive of some clear sputum, no fevers. She does report taking oral intake and ambulating at home, but Physical Therapy has reported that she is very weak. She reports some shortness of breath with recumbent position. Otherwise, the patient is not very forthcoming with any other complaints. PAST MEDICAL HISTORY: Significant for: 1. Mitral valve replacement with a 25 mm Maximiliano-Dao pericardial valve in February 2012 in [place]. 2. History of coronary bypass in 2011 with a DE LEON to the LAD. She has a previous nuclear scan in January 2013 that demonstrated a very mild degree of inducible ischemia in the most basal portion of the anterior lateral wall. No cardiac catheterizations have been performed since the bypass. 3. Atrial fibrillation. 4. Sick sinus syndrome with a [employer]tr[employer] pacemaker implantation. 5. Carotid artery disease with history of stroke. 6. Gastric ulcers. 7. COPD. 8. Reflux. SOCIAL HISTORY: Patient is and lives at home. Family lives close by. No current alcohol or tobacco intake. FAMILY HISTORY: Mother with atrial fibrillation and a stroke. Father apparently had congestive heart failure. REVIEW OF SYSTEMS: A 10 system review of systems was very difficult secondary to the patient's poor ability to provide history. PHYSICAL EXAMINATION: Vital signs: She is afebrile, heart rate of 59, blood pressure 148/39. General: She is in no acute distress. HEENT: Oropharynx is moist. Poor dentition. Eye examination is pink conjunctivae, white sclerae. Neck: Examination shows no obvious thyromegaly or thyroid tenderness. Cardiovascular: She sounds to be in an irregularly irregular rhythm. She has no obvious murmurs. She has no S3. She has no lower extremity edema. She has warm and well- perfused lower extremities. Chest: Clear bilaterally. She has no increased work of breathing. Abdomen: Soft, nontender, nondistended. She has no obvious organomegaly. Skin: Warm and dry throughout without any rashes. PERTINENT DATA: Her EKG on the at 6:48 shows atrial fibrillation with ventricular paced complexes. Subsequent EKG on the at 10:07 shows atrial fibrillation with ventricular paced complexes. Her most recent chest x-ray demonstrated pleural effusions. Right lower and middle lobe atelectasis versus pneumonia. She had an echocardiogram that was performed on the 28 of August demonstrating an EF of 55%. RV systolic pressure in the 70 to 75 mmHg range. Bioprosthetic mitral valve had a mean gradient of 5. No evidence of aortic stenosis. Moderate to severe left and right atrial enlargement. She had moderate left ventricular hypertrophy as well. Her most recent labs show a white count 5.8, hematocrit 31.5, platelet count 153,000. Sodium 146, potassium 4.1, BUN 22, creatinine 0.7. She had a proBNP on the 4624. Her CRP today was 10.7. ASSESSMENT: Ms. Aragon is an 83-year-old female with a history of mitral valve replacement and atrial fibrillation, who presented with complaints of shortness of breath after recent discharge for diastolic heart failure. PLAN: Patient is an extremely poor historian, and it is a difficult time understanding her exact reason for presentation. She certainly appears to have some excess volume in her lungs. She does have a significant level of pulmonary hypertension, and so we would want to be cautious with her as far as over-diuresing. She is off of diuretics at this point, being on spironolactone. Her blood pressures have been doing well. I will place her on 40 mg of Lasix b.i.d. That was our previous recommendation at the time of discharge, as she had previously been on oral Lasix at a dose of 40 mg daily. She ended up being discharged on daily dosing. We will check a noncontrast CT scan of the chest to reevaluate her lung findings. We will check a proBNP and a BMP in the morning. cc: Kavon Oneal MD
--- NOTE | 2018-09-11 12:59 | Diag Imaging Result Doc PS360 ---
EXAM: CT THORAX W/O CONTRAST 09/11/2018 HISTORY: dyspnea, atelectasis, pneumonia TECHNIQUE: This exam was performed using automated exposure control, adjustment of mA or kV according to patient size, and/or use of iterative reconstruction technique. COMMENT: There are no previous studies available for comparison. There is some motion artifact. There are bilateral pleural effusions. There are ill-defined opacities in both lung bases consistent with atelectasis and/or pneumonia. This is particularly true of the right lower lobe where there are air bronchograms. There is a mitral valve prosthesis. There is generalized cardiomegaly with particular enlargement of the atria. There are calcifications in the coronary arteries. There has been previous sternotomy. There is scoliosis of the thoracic spine with convexity to the right as well as multilevel degenerative disc disease with large anterior osteophytes. IMPRESSION: Bilateral pleural effusions worse on the right and left with atelectasis versus pneumonia particularly in the right lower lobe. Cardiomegaly as described. Electronically signed by Jeffy Warren 09/11/2018 12:57 PM
[2018-09-11] MEDS: LASIX PO SCH (22:28)
--- NOTE | 2018-09-11 22:57 | PROGRESS NOTE ---
DATE: 09/11/2018 SUBJECTIVE: The patient is resting in bed. She has no complaints at this time. OBJECTIVE: Vital Signs: Temperature 97 degrees, blood pressure 146/49, heart rate 69, respirations 18, O2 saturation 98% on 2 L nasal cannula. Urine output 2 L. General: This is a chronically ill-appearing elderly female, lying in bed, in no acute distress. Heart: S1, S2. Normal. Lungs: Coarse breath sounds bilaterally. Abdomen: Positive bowel sounds. Soft, nontender, nondistended. Extremities: 1+ edema. Neurologic: The patient is awake, but nonverbal. LABS: White blood cell count 5.8, hemoglobin 8.9, hematocrit 153. Sodium 146, potassium 4.1, chloride 95, CO2 45, BUN 22, creatinine 0.7, glucose 121. CT of the chest shows bilateral pleural effusions, worse on the right and left, versus pneumonia in the right lower lobe. ASSESSMENT AND PLAN: 1. Pneumonia. The patient has been started on broad-spectrum antibiotics. Blood cultures have also been ordered. Continue with bronchodilator therapy. 2. Bilateral pleural effusions. The patient has been treated with diuretic therapy. We will continue to monitor for improvement. 3. Volume overload. The patient was on diuretic therapy, and her swelling has improved. We will continue with albumin infusions. 4. Hypothyroidism. Continue with Synthroid. 5. Atrial fibrillation. Continue on Coreg and Xarelto. 6. Anemia. Stable. 7. Disposition. Once the patient is medically stable, she will be discharged to rehab. Palliative care is following. The patient is now a DNR level 1. cc: Kate Maldonado MD
--- NOTE | 2018-09-11 23:44 | INFECTIOUS DISEASE CONSULT REP ---
DATE: 09/11/2018 CONCLUSION: The patient has bibasilar infiltrates versus atelectasis. There appears to be bilateral pleural effusions. I think it is possible the patient does have a bilateral pneumonia. I suspect it could be due to aspiration. RECOMMENDATIONS: I agree with starting the patient on cefepime and Zyvox. Blood cultures have been drawn, but unfortunately the patient is not bringing up any sputum. I have also ordered a procalcitonin, so that we could hopefully differentiate between pneumonia and non pneumonia. PRESENT ILLNESS: The patient appears to be in a delirium, and she is unable to provide any information. There is no family member present. Thus far, the patient's CBC shows a white count of 5890, hemoglobin 8.9, and platelet count 153,000. Creatinine is 0.7. GFR is greater than 60. Blood cultures are pending. CT scan of the chest showed bibasilar pneumonia versus atelectasis. Also, pleural effusions were present. REVIEW OF SYSTEMS: Unable to be obtained. PAST MEDICAL HISTORY: Positive for: 1. Mitral valve replacement. 2. Coronary artery bypass grafting. 3. Cholecystectomy. 4. Low back surgery. 5. Bilateral knee replacements. 6. Right shoulder replacement. 7. Hysterectomy. 8. Appendectomy. 9. Placement of a left-sided pacemaker. 10. Hypothyroidism. SOCIAL HISTORY: The patient is a . She was living alone, but now lives with her family. She does not have a history of alcoholism, cigarette smoking, or illicit drug use. FAMILY HISTORY: Positive for atrial fibrillation, stroke, congestive heart failure, and metastatic bladder cancer. DRUG ALLERGIES: Includes aminoglycoside and polymyxin B. HOME MEDICATIONS: Consists of Augmentin, carvedilol, Lanoxin, Lasix, Levaquin, Synthroid, Zyvox, magnesium, Xarelto, and spironolactone. PHYSICAL EXAMINATION: Vital Signs: Temperature is 97.7 degrees, pulse 61, respirations 22, blood pressure 146/41. General: This is an elderly female. She appears to be in a delirium. She does not appear to be in any acute distress. Head, Eyes, Ears, Nose, and Throat: No drainage noted from the nose or ears. The patient just stared, and did not move her eyes. There is no drainage from the nose or ears. Neck: No meningismus. Lungs: Clear to auscultation. Cardiovascular: Heart rate is irregular. Thorax: The patient has a left-sided pacemaker. The site is not erythematous or swollen. Extremities: No leg edema or erythema. Neurologic: The patient is not moving her eyes. She appears to be in a delirium. She did respond to verbal stimuli. The patient does not have a tremor. Integument: No rash noted. Thank you for the consult. cc: Darrion Guy MD
[2018-09-12] MEDS: SYNTHROID PO SCH (06:01)
--- NOTE | 2018-09-12 07:28 | Diag Imaging Result Doc PS360 ---
EXAM: CHEST-PORTABLE INDICATION: dyspnea TECHNIQUE: One view COMPARISON: 09/11/2018 FINDINGS: The patient is rotated toward the right. Bilateral effusions are grossly stable. Right lower lobe atelectasis and/or infiltrate is approximately stable. No new consolidation is identified. Cardiac silhouette is stable. IMPRESSION: Essentially stable chest Electronically signed by Ashwin Velázquez 09/12/2018 7:26 AM
[2018-09-12 08:43] LABS: CALCIUM 9.4 mg/dL (8.8-10.2); CREATININE 0.9 mg/dL (0.5-0.9); MAGNESIUM 2.2 mg/dL (1.5-2.7); POTASSIUM 4.4 mmol/L (3.5-5.1)
[2018-09-12 08:57] LABS: BASO# 0.02 X1000 (0.0-0.2); BASO% 0.2 % (0.0-0.8); EOS# 0.01 X1000 (0.0-0.7); EOS% 0.1 % (0.0-10.0); HEMATOCRIT 36.4 % (37.0-47.0); HEMOGLOBIN 10.5 g/dL (12.0-16.0); IMM GRAN# 0.02 X1000 (0.0-0.04); IMM GRAN% 0.2 % (0.0-0.5); LYMPH# 0.77 X1000 (1.2-3.4); LYMPH% 5.9 % (20.5-51.1); MCH 28.9 PG (27-31); MCHC 28.8 g/dL (33-37); MCV 100.3 FL (81-99); MONO# 1.14 X1000 (0.11-0.59); MONO% 8.7 % (1.7-9.3); MPV 9.8 FL (7.4-10.4); NEUT# 11.08 X1000 (1.4-6.5); NEUT% 84.9 % (42.2-75.2); PLT 209 X1000 (130-400); RBC 3.63 XMIL (4.2-5.4); WBC 13.04 X1000 (4.8-10.8)
[2018-09-12 09:10] LABS: BANDS 6 % (0-1); LYMPHS 2 % (21-51); MONO 2 % (1-9); SEGS 90 % (42-75)
[2018-09-12] MEDS: ZYVOX 600 MG/D5W 600 MG/300 ML IVPB IV SCH ×2 (09:27→22:05)
[2018-09-12] MEDS: XARELTO PO SCH (09:28)
[2018-09-12] MEDS: MAXIPIME 1 GM in NS 50 ML IV SCH ×2 (09:28→22:05)
[2018-09-12] MEDS: ALDACTONE PO SCH (09:28)
[2018-09-12] MEDS: MAG-OX PO SCH (09:28)
[2018-09-12] MEDS: PRINIVIL PO SCH (09:28)
[2018-09-12] MEDS: COREG PO SCH ×3 (09:28→22:06)
[2018-09-12] MEDS: LASIX PO SCH ×2 (09:28→22:05)
--- NOTE | 2018-09-12 11:24 | INFECTIOUS DISEASE PROGRESS NO ---
DATE: 09/12/2018 PRESENT ILLNESS: Ms. Aragon is being treated for bibasilar pneumonia, which may be due to aspiration. MEDICATIONS: Today is day one of Zyvox 600 mg IV every 12 hours and cefepime 1 gram IV every 12 hours. PHYSICAL EXAMINATION: Vital Signs: She has been afebrile. Temp is 98 degrees , pulse rate 65, respiratory rate 18, blood pressure 129/58, O2 saturation is 97% on 2 L nasal cannula. General: This is an elderly, chronically ill-appearing female. She is lying in bed, smiling; currently in no acute distress. HEENT: Atraumatic, normocephalic. Oral mucous membranes are pink and dry. Conjunctivae are pink. Neck: Supple. Trachea is midline. Cardiovascular: Heart rate is irregular, paced rhythm on the monitor with frequent PVCs. Pedal and radial pulses are palpable bilaterally. There is a 1+ pretibial edema noted bilaterally. Respiratory: Lung sounds are clear in the upper lobes, diminished in the bases. Abdomen: Soft, round, and nontender. Bowel sounds are active. Neurologic: The patient is awake, alert, and responding a little better today. She is answering some questions and nonverbal at times. LABORATORY AND X-RAY: Today, her white count is 13.04, hemoglobin 10.5, platelet count 209,000. Creatinine is 0.9. GFR is 60. Pro-B natriuretic peptide is 11,528. She does have a set of blood cultures, which are preliminary. Chest x-ray today shows right lower lobe atelectasis and/or infiltrates with no new consolidation. Essentially stable. ASSESSMENT AND PLAN: Ms. Aragon was started yesterday on Zyvox and cefepime for bibasilar infiltrates versus atelectasis. At this point, we will continue these medications through the weekend to see how she responds. We will go ahead and order blood work and a chest x-ray for Saturday. These plans have been discussed with and recommended by Dr. Guy. COMORBIDITIES: For Ms. Aragon include that she is elderly and confused with a pacemaker, coronary artery disease, and multiple joint replacements. Dictated by RUDOLPH Roth for Darrion Guy MD This chart was documented by, RUDOLPH Roth and accurately reflects the services performed, treatment plan and medical decisions as attested by the providers signature Darrion Guy MD. cc: Darrion Guy MD MTDD
--- NOTE | 2018-09-12 12:57 | CARDIOLOGY PROGRESS NOTE ---
DATE: 09/12/2018 SUBJECTIVE: Ms. Aragon is an 83-year-old female. She feels like her breathing has improved. In the interim she did apparently stand at the bedside with Physical Therapy. OBJECTIVE: Vitals: She is afebrile. Heart rate of 71. Blood pressure is 105/56. General: No acute distress. Cardiovascular: Regular rate and rhythm. No murmurs. No S3. No lower extremity edema. Chest: Clear to auscultation bilaterally except for some very mild rales in the bases. No increased work of breathing. Abdomen: Soft, nontender. PERTINENT DATA: White count 13, hematocrit 36, platelet count 209,000, she has a bandemia of 6. Sodium 146, potassium 4.4, BUN 22, creatinine 0.9. Her proBNP increased to 11,528. ASSESSMENT: Ms. Aragon is 83, with diastolic heart failure. PLAN: She is on oral diuretics and seems to be diuresing based on her laboratories. I am unclear of the exact reason why her proBNP increased to 11,000 from 4625 on the considering that she has shown negative fluid balances over the last couple of days. For now, we will hold the course as she seems to be diuresing. cc: Kavon Oneal MD
--- NOTE | 2018-09-12 18:45 | PROGRESS NOTE ---
DATE: 09/12/2018 SUBJECTIVE: The patient is resting comfortably in bed. She remains nonverbal. OBJECTIVE: Vital Signs: Temperature 97.8 degrees, blood pressure 105/56, heart rate 71, respirations 22, and O2 saturations 100% on 2 liters nasal cannula. General: This is a chronically ill-appearing elderly female, lying in bed, in no acute distress. Heart: S1 an S2 normal. Regular rate and rhythm. Lungs: Equal air entry bilaterally. Diminished breath sounds at the bases. Abdomen: Positive bowel sounds. Soft, nontender, nondistended. There is 1+ edema in the lower extremities. Neurologic: The patient is awake, but is nonverbal. LABORATORY DATA: White blood cell count 13, hemoglobin 10, hematocrit 36, platelets 209,000. Sodium 146, potassium 4.4, chloride 93, CO2 of 39, BUN 22, creatinine 0.9, glucose 110. ASSESSMENT AND PLAN: 1. Acute diastolic congestive heart failure exacerbation. The patient has responded well to diuretic therapy. She has less swelling in her extremities. We will continue with diuretic therapy as directed by the nuclear pharmacist. 2. Pneumonia. Continue with intravenous antibiotic therapy as directed by Dr. Guy. 3. Dementia. Aware. 4. Paroxysmal atrial fibrillation. Continue on Coreg and Xarelto. 5. Hypothyroidism. Continue on Synthroid. 6. Anemia, stable. 7. Disposition. Once the patient is stable for discharge, she will be sent to rehabilitation. cc: Kate Maldonado MD
[2018-09-13] MEDS ORDERED: NS 250 ML IV ONE (01:41)
[2018-09-13] MEDS: SYNTHROID PO SCH (06:09)
[2018-09-13 07:56] LABS: BASO# 0.01 X1000 (0.0-0.2); BASO% 0.1 % (0.0-0.8); EOS# 0.02 X1000 (0.0-0.7); EOS% 0.2 % (0.0-10.0); HEMATOCRIT 35.3 % (37.0-47.0); HEMOGLOBIN 10.8 g/dL (12.0-16.0); IMM GRAN# 0.04 X1000 (0.0-0.04); IMM GRAN% 0.3 % (0.0-0.5); LYMPH# 1.52 X1000 (1.2-3.4); LYMPH% 12.3 % (20.5-51.1); MCHC 30.6 g/dL (33-37); MCV 94.6 FL (81-99); MONO# 0.66 X1000 (0.11-0.59); MONO% 5.3 % (1.7-9.3); MPV 9.9 FL (7.4-10.4); NEUT% 81.8 % (42.2-75.2); PLT 182 X1000 (130-400); RBC 3.73 XMIL (4.2-5.4); RDW 14.1 % (11.5-14.5); WBC 12.35 X1000 (4.8-10.8)
[2018-09-13 09:39] LABS: CREATININE 1.5 mg/dL (0.5-0.9); POTASSIUM 4.3 mmol/L (3.5-5.1)
[2018-09-13] MEDS: ZYVOX 600 MG/D5W 600 MG/300 ML IVPB IV SCH (10:55)
[2018-09-13] MEDS: MAXIPIME 1 GM in NS 50 ML IV SCH ×2 (10:56→22:30)
[2018-09-13] MEDS: ALDACTONE PO SCH (10:57)
[2018-09-13] MEDS: MAG-OX PO SCH (10:57)
[2018-09-13] MEDS: XARELTO PO SCH (10:57)
[2018-09-13] MEDS: COREG PO SCH ×2 (10:57→22:30)
[2018-09-13] MEDS: PRINIVIL PO SCH (10:57)
[2018-09-13] MEDS: LASIX PO SCH (13:38)
[2018-09-13] MEDS ORDERED: PRINIVIL PO SCH (13:50)
--- NOTE | 2018-09-13 14:21 | PROGRESS NOTE ---
DATE: 09/13/2018 SUBJECTIVE: The patient is resting comfortably in bed. She is nonverbal. OBJECTIVE: Vital Signs: Temperature 96.4 degrees, blood pressure 89/43, heart rate 61, respirations 18, O2 saturations 99% on 2 L nasal cannula. General: This is a chronically ill- appearing elderly female sitting up in bed. Heart: S1, S2 normal. Lungs: Equal air entry bilaterally. Diminished breath sounds at the bases. Abdomen: Positive bowel sounds. Soft, nontender, nondistended. Extremities: 1+ edema in the lower extremities. Neuro: The patient is awake but nonverbal. LABS: White blood cell count 12, hemoglobin 10, hematocrit 35, platelets 182,000, sodium 142, potassium 4.3, chloride 94, CO2 36, BUN 29, creatinine 1.5, glucose 126. ASSESSMENT AND PLAN: 1. Acute diastolic congestive heart failure exacerbation. Will hold the Lasix dosage for today due to the patient's hypotension. Further recommendations to follow from the rn cardiac rehab. 2. Pneumonia. Continue with antibiotic therapy. 3. Acute kidney injury. This is likely diuretic induced. Will hold the Lasix for today. 4. Dementia. Aware. 5. Paroxysmal atrial fibrillation. The patient is rate controlled. Continue on Xarelto. 6. Hypothyroidism. Continue on Synthroid. 7. Leukocytosis, slightly improved. 8. Anemia. Stable. 9. Disposition. The patient will likely need inpatient rehab. Will consult [facility]. cc: Kate Maldonado MD
[2018-09-13] MEDS: NS 500 ML IV SCH (17:45)
[2018-09-13] MEDS: DUONEB (A & A) INH SCH ×2 (21:14→21:15)
[2018-09-13] MEDS: MUCOMYST 20% INH SCH (21:14)
[2018-09-14] MEDS: ZYVOX 600 MG/D5W 600 MG/300 ML IVPB IV SCH ×3 (03:45→20:08)
[2018-09-14] MEDS: DUONEB (A & A) INH SCH ×4 (04:43→22:45)
[2018-09-14] MEDS: SYNTHROID PO SCH (06:23)
[2018-09-14] MEDS: MAXIPIME 1 GM in NS 50 ML IV SCH ×2 (09:21→20:08)
[2018-09-14] MEDS: ALDACTONE PO SCH (09:22)
[2018-09-14] MEDS: XARELTO PO SCH (09:22)
[2018-09-14] MEDS: COREG PO SCH ×2 (09:22→20:08)
[2018-09-14] MEDS: LASIX PO SCH ×2 (09:22→20:08)
[2018-09-14] MEDS: MAG-OX PO SCH (09:22)
[2018-09-14] MEDS: NS 500 ML IV SCH (09:29)
[2018-09-14] MEDS: MUCOMYST 20% INH SCH ×2 (09:53→22:40)
--- NOTE | 2018-09-14 12:56 | PROGRESS NOTE ---
DATE: 09/14/2018 SUBJECTIVE: The patient is sitting up in bed. No acute events noted overnight. OBJECTIVE: Vital Signs: Temperature 97 degrees, blood pressure 113/34, heart rate 69, respirations 22, O2 saturations 100% on 2 L nasal cannula. Urine output is 175. General: This is a chronically ill-appearing female lying in bed, no acute distress. Heart: S1, S2 normal. Lungs: Diminished breath sounds at the bases. No crackles. No rales. Abdomen : Positive bowel sounds. Soft, nontender, nondistended. Extremities: Have 1+ edema. Neurologic: The patient is awake but nonverbal. LABS: None. ASSESSMENT AND PLAN: 1. Acute diastolic congestive heart failure exacerbation. Continue on the current treatment regimen. 2. Pneumonia. Continue with IV antibiotics. 3. Acute kidney injury. The diuretics are on hold. Will hold the lisinopril. 4. Dementia. Aware. 5. Hypothyroidism. Continue on Synthroid. 6. Paroxysmal atrial fibrillation. Continue on Coreg and Xarelto. 7. Anemia. Stable. 8. Severe protein calorie malnutrition. The patient is refusing to eat. I discussed with the patient's son the different options available. He stated that he would discuss it with the family and let me know what they decide. cc: Kate Maldonado MD MTDD
[2018-09-15] MEDS: DUONEB (A & A) INH SCH ×3 (03:00→15:52)
[2018-09-15] MEDS: SYNTHROID PO SCH (06:17)
--- NOTE | 2018-09-15 06:40 | Diag Imaging Result Doc PS360 ---
EXAM: CHEST-PORTABLE HISTORY: pneumonia TECHNIQUE: Portable chest single view COMPARISON: 09/12/2018 FINDINGS: There is a moderate-sized right pleural effusion with a small left pleural effusion. There is atelectasis or infiltrates in the mid and lower right lung and in the left base. The appearance is similar to the prior exam. The heart remains enlarged. A heart valve has been replaced and there is a left-sided pacemaker. IMPRESSION: No interval improvement. Electronically signed by Trent Barrera 09/15/2018 6:38 AM
[2018-09-15 07:38] LABS: BASO# 0.01 X1000 (0.0-0.2); BASO% 0.1 % (0.0-0.8); EOS# 0.09 X1000 (0.0-0.7); EOS% 1.3 % (0.0-10.0); HEMATOCRIT 31.5 % (37.0-47.0); HEMOGLOBIN 9.6 g/dL (12.0-16.0); LYMPH# 1.11 X1000 (1.2-3.4); LYMPH% 15.8 % (20.5-51.1); MCH 29.2 PG (27-31); MCHC 30.5 g/dL (33-37); MCV 95.7 FL (81-99); MONO# 0.53 X1000 (0.11-0.59); MONO% 7.5 % (1.7-9.3); MPV 9.6 FL (7.4-10.4); NEUT# 5.28 X1000 (1.4-6.5); NEUT% 75.3 % (42.2-75.2); PLT 189 X1000 (130-400); RBC 3.29 XMIL (4.2-5.4); RDW 14.4 % (11.5-14.5); WBC 7.02 X1000 (4.8-10.8)
[2018-09-15 08:01] LABS: CALCIUM 8.2 mg/dL (8.8-10.2); CREATININE 2.3 mg/dL (0.5-0.9); POTASSIUM 4.4 mmol/L (3.5-5.1)
[2018-09-15] MEDS: MAXIPIME 1 GM in NS 50 ML IV SCH (08:30)
[2018-09-15] MEDS: ZYVOX 600 MG/D5W 600 MG/300 ML IVPB IV SCH (09:00)
[2018-09-15] MEDS: MUCOMYST 20% INH SCH (09:31)
--- NOTE | 2018-09-15 11:37 | Diag Imaging Result Doc PS360 ---
EXAM: US RENAL 2 (RETROPER) COMPLETE HISTORY: patsy/arf TECHNIQUE: Renal ultrasound COMPARISON: None. FINDINGS: The left kidney measures 10.9 x 5.0 x 5.1 cm. Normal renal echotexture and cortical thickness. No renal stone or hydronephrosis. No renal mass. The right kidney measures 10.7 x 4.4 x 4.9 cm. Normal renal echotexture and cortical thickness. No renal stone or hydronephrosis. The lower pole is poorly seen. IMPRESSION: Lower pole of the right kidney is poorly seen, but otherwise negative exam. Follow-up or further imaging may be beneficial for complete coverage of the right kidney. Electronically signed by Trent Barrera 09/15/2018 11:35 AM
--- NOTE | 2018-09-15 12:25 | PROGRESS NOTE ---
DATE: 09/15/2018 SUBJECTIVE: The patient is lying in bed. She is nonverbal. She has been refusing her medications on and off for the last several days. OBJECTIVE: Vital signs: Temperature 97.4 degrees, blood pressure 147/33, heart rate 63 and respirations 20. O2 saturations 97% on 2 L nasal cannula. Urine output 300 mL. General: This is a chronically ill-appearing elderly female sitting up in bed in no acute distress. HEENT: Head normocephalic, atraumatic. Heart: S1, S2 normal. Regular rate and rhythm. Lungs: Diminished breath sounds at the bases. No wheezing. No rales. Abdomen: Positive bowel sounds. Soft, nontender, and nondistended. Extremities: 2+ edema. No cyanosis. No calf tenderness. Neurologic: The patient is awake, but nonverbal. LABORATORY: White blood cell count 7, hemoglobin 9.6, hematocrit 31 and platelets 189,000. Sodium 139, potassium 4.4, chloride 94, CO2 37, BUN 52, creatinine 2.3 and glucose 159. Chest x-ray shows a moderate-size right pleural effusion with a small left pleural effusion. Infiltrates in the mid and lower right lung and in the left base. ASSESSMENT AND PLAN: 1. Acute on chronic diastolic congestive heart failure exacerbation. The patient has not had any Lasix since the . We will await further recommendations from the [facility]. 2. Acute kidney injury. Will check urine studies and a renal ultrasound. 3. Pneumonia. Continue with broad-spectrum antibiotics. 4. Hypothyroidism. Continue on Synthroid. 5. Dementia. Aware. 6. Severe protein calorie malnutrition. The patient refuses to eat, and to take her medications. This has been discussed with the patient's family and they are trying to decide whether they want to continue with the current treatment plan or to make the patient hospice. Palliative care is following. 7. Atrial fibrillation. The patient is rate controlled. Continue on Coreg and Xarelto. cc: Kate Maldonado MD MTDD
[2018-09-15] MEDS ORDERED: NS 1,000 ML IV SCH (13:45)
[2018-09-15 13:57] LABS: URINE SOURCE CATH
[2018-09-15 14:07] LABS: BILIRUBIN URINE NEGATIVE (NEGATIVE); BLOOD URINE MODERATE (NEGATIVE); COLOR YELLOW; GLUCOSE URINE NEGATIVE (NEGATIVE); KETONE URINE TRACE mg/dL (NEGATIVE); LEUKOCYTES URINE LARGE (NEGATIVE); NITRITE URINE NEGATIVE (NEGATIVE); PH URINE 5.5; PROTEIN URINE 70 mg/dL (NEGATIVE); TURBIDITY URINE HAZY (CLEAR); UROBILINOGEN URINE NORMAL (NORMAL)
[2018-09-15] MEDS: COREG PO SCH (14:16)
[2018-09-15] MEDS: XARELTO PO SCH (14:16)
[2018-09-15] MEDS: LASIX PO SCH (14:28)
[2018-09-15] MEDS: ALDACTONE PO SCH (14:28)
[2018-09-15] MEDS: MAG-OX PO SCH (14:28)
[2018-09-15 14:36] LABS: UR EPITHELIAL CELLS <10 /HPF (<10); URINE BACTERIA NEGATIVE /HPF; URINE RBC 20-40 /HPF (<10); URINE WBC TNTC /HPF (<10)
[2018-09-15 14:42] LABS: UR CREAT RANDOM 84.2 mg/dL (11-20); UR PROT RANDOM 81.7 mg/dL
[2018-09-15 14:52] LABS: URINE CASTS NONE SEEN; URINE CRYSTALS NONE SEEN; URINE YEAST PRESENT
[2018-09-15 20:44] VITALS: BP 140/41
--- NOTE | 2018-09-16 05:07 | DISCHARGE SUMMARY ---
ADMISSION DATE: 09/07/2018 DISCHARGE DATE: 09/15/2018 CONSULTATIONS: 1. Dr. Kavon Oneal with cardiology. 2. Dr. Darrion Guy with infectious disease. PERTINENT PROCEDURES: 1. Head CT, stable head with no evidence of acute pathology. 2. Chest CT, bilateral pleural effusion, worse on the right than the left, with atelectasis versus pneumonia, particularly in the right lower lobe, cardiomegaly. 3. Renal ultrasound, lower pole of the right kidney is poorly seen but otherwise negative exam. DISCHARGE DIAGNOSES: 1. Acute on chronic diastolic congestive heart failure exacerbation. The patient has been on Lasix since the , followed by cardiology. 2. Acute kidney injury. The patient had a renal ultrasound that did not show any acute findings. 3. Pneumonia. The patient was on intravenous broad-spectrum antibiotics, followed by infectious disease. 4. Hypothyroidism. 5. Dementia. 6. Severe protein calorie malnutrition. The patient has refused to eat or take any oral medications. 7. Atrial fibrillation, rate controlled. 8. Do Not Resuscitate level 1. Again, the patient is refusing to eat or to take medications. Doctors have discussed with patient's family as well as palliative care about goals of care. The family has chosen to take the patient home with hospice and will be going home with [facility] today. HOSPITAL COURSE: Briefly, Ms. Aragon is an 83-year-old female who had a recent hospitalization for congestive heart failure and was readmitted around 2 days after her discharge. She complained of a mild productive cough with clear sputum. No fevers. She again was found to be in congestive heart failure exacerbation as well as encephalopathic and was initiated on treatment for pneumonia. She was followed by cardiology as well as infectious disease. She was on IV diuretics as well as broad-spectrum antibiotics. Throughout her hospitalization, she was refusing to eat or take her home medications. Family made the decision to make her Do Not Resuscitate level 1 and made the decision to stop the current treatment plan and to pursue hospice. They have chosen [facility]. Arrangements have been made through palliative care with [facility] and she will be discharged home today. VITAL SIGNS: At the time of discharge, temperature is 98.1 degrees axillary, heart rate 68, respirations 20, blood pressure 148/32, O2 is 97% on 2 L nasal cannula. DISCHARGE DIET: Regular. DISCHARGE MEDICATIONS: None, pending [facility]. FOLLOWUP: Ms. Aragon is being discharged home with [facility]. Dictated by RUDOLPH Velez for Kate Maldonado MD cc: MD Darrion Mtz MD Peter Johnson, MD Micah A. Howard, MD
== END 2018-09-15 21:30 | disposition hospice, home (50) | DRG 291 ==
LOC: SUPCPDRO → ED 09:42 → SUATTDRO 13:20 → EDIPHOLD 13:20 → 3S 09-08 08:07 → 3N 09-09 15:39
PROVIDERS: ATTEND Internal Medicine
CPT/HCPCS: 51702; 70450; 71010; 71020; 71045; 71046; 71250; 76770; 80048; 80053; 80162; 81001; 82040; 82533; 82550; 82570; 82784; 82948; 83735; 83880; 83935; 84100; 84145; 84156; 84300; 84439; 84443; 84484; 84540; 85025; 85027; 85651; 86140; 87040; 87088; 87205; 87449; 87798; 87801; 87899; 93005; 93010; 94640; 94761; 97110; 97162; 97166; 97530; 97535; 99285; A9270; J0692; J1940; J2020; J7030; J7040; J7050; XXXXX